=== PATIENT | male | born 1960 | race Caucasian/White ===

== ENCOUNTER 2020-08-15 08:30 | Outpatient (REF) | payer OTHER, SELFPAY ==
[2020-08-15 11:04] LABS: MANUAL DIFF FLAG NO
[2020-08-15 11:20] LABS: Basophils Absolute Auto 0.1 X10*3/uL (0.0-0.2); Basophils Percent Auto 0.6 % (0-2); Eosinophils Absolute Auto 0.1 X10*3/uL (0.0-0.4); Eosinophils Percent Auto 0.8 % (0-4); Hemoglobin 16.8 g/dl (14.0-18.0); Imm Gran Abs Auto 0.04 X10*3/uL (0.00-0.03); Imm Gran Pct Auto 0.4 % (0.0-0.4); Lymphocytes Absolute Auto 2.3 X10*3/uL (1.2-4.9); Lymphocytes Percent Auto 25.3 % (20-40); Mean Corpuscular HGB Conc 32.9 g/dl (31.0-36.0); Mean Corpuscular Hemoglobin 31.6 pg (27.0-33.0); Mean Corpuscular Volume 95.9 fL (80-98); Mean Platelet Volume 10.5 fL (9.4-12.4); Monocytes Absolute Auto 0.7 X10*3/uL (0.1-1.2); Monocytes Percent Auto 7.9 % (2-11); Neutrophils Absolute Auto 5.9 X10*3/uL (2.0-8.3); Platelet Count 272 X10*3/uL (160-400); Red Blood Count 5.32 X10*6/uL (4.60-5.80); Red Cell Distribution Width 12.4 % (11.0-16.0); White Blood Count 9.1 X10*3/uL (4.8-10.8)
[2020-08-15 11:52] LABS: Alanine Aminotransferase 14 U/L (0-40); Albumin Level 4.5 g/dL (3.5-5.0); Alkaline Phosphatase 81 U/L (39-117); Anion Gap 12 (12-20); Aspartate Amino Transferase 17 U/L (5-37); Blood Urea Nitrogen 18 mg/dL (9-16); Calcium 9.4 mg/dL (8.4-10.2); Carbon Dioxide 27 mmol/L (22-29); Chloride 102 mmol/L (96-108); Cholesterol 213 mg/dL; Estimated Glomerular Filt Rate > 60; Glucose Fasting 100 mg/dL (60-99); HDL Cholesterol 38 mg/dL; LDL Cholesterol Calculated 144 mg/dl; Potassium 4.5 mmol/L (3.3-5.1); Sodium 136 mmol/L (135-145); Triglycerides 157 mg/dL
[2020-08-15 12:11] LABS: Microalbum/Creatinine Ratio Ur 5.6 ug/mg cr
[2020-08-15 12:18] LABS: Prostate Specific Antigen Scr 3.18 ng/mL (<0.05-4.0); Thyroid Stimulating Hormone 1.17 uIU/mL (0.32-4.0)
== END 2020-08-15 08:31 | disposition home or self-care (01) ==
LOC: HO.HMGCLDS 08:30
PROVIDERS: PCP Physician Assistant; Visit Provider Physician Assistant
DX: I10 Essential (primary) hypertension (principal); E78.9 Disorder of lipoprotein metabolism, unspecified; Z12.5 Encounter for screening for malignant neoplasm of prostate
CPT/HCPCS: 36415; 80053; 80061; 82043; 84153; 84443; 85025

== ENCOUNTER 2020-08-30 07:46 | Outpatient (REF) | payer OTHER, SELFPAY ==
--- NOTE | ~2020-08-30 | US_ITS ---
EXAMINATION: US ABDOMEN LIMITED CLINICAL INFORMATION: Benign neoplasm of extrahepatic bile ducts. COMPARISON: Ultrasound abdomen complete 10/21/2017 and 12/05/2016. CT abdomen and pelvis 10/05/2015. TECHNIQUE: Real-time imaging of the right upper quadrant abdominal viscera. FINDINGS: PANCREAS: The pancreas is homogeneous in echotexture without enlargement. The tail is obscured by overlying gas. LIVER: The liver is normal in size. The liver contour is normal. Parenchymal echogenicity is normal. No focal hepatic lesion. There is no intrahepatic biliary duct dilatation seen. GALLBLADDER: The gallbladder wall thickness is 0.2 cm. The gallbladder is physiologically distended without evidence of stones, sludge, polyps, wall thickening or pericholecystic fluid. COMMON BILE DUCT: Normal in caliber measuring 0.5 cm in diameter. RIGHT KIDNEY: Normal. No hydronephrosis. No renal calculi or focal parenchymal lesions. The kidney measures 10.8 cm in maximum dimension. FREE FLUID: None. US/US abdomen limited IMPRESSION: Unremarkable limited abdomen ultrasound.
== END 2020-08-30 07:47 | disposition home or self-care (01) ==
LOC: HO.US 07:46
PROVIDERS: PCP Physician Assistant; Visit Provider Physician Assistant
DX: D13.5 Benign neoplasm of extrahepatic bile ducts (principal)
CPT/HCPCS: 76705

== ENCOUNTER 2021-01-25 16:40 | Outpatient (REF) | payer OTHER, SELFPAY ==
--- NOTE | ~2021-01-25 | XR_ITS ---
EXAMINATION: XR KNEE, LEFT CLINICAL INFORMATION: Pain in the left knee COMPARISON: None TECHNIQUE: Four views of the left knee. FINDINGS: No fracture or subluxation. Compartmental joint spaces are maintained. No joint effusion. Enthesophyte formation of the patella and tibial tuberosity. XR/XR knee LT 4V IMPRESSION: No acute abnormality. No significant arthritic changes.
--- NOTE | ~2021-01-25 | XR_ITS ---
EXAMINATION: XR CALCANEUS, RIGHT CLINICAL INFORMATION: Right heel pain COMPARISON: None TECHNIQUE: Lateral and axial views of the right calcaneus were obtained. FINDINGS: No fracture or cortical disruption. Appropriate alignment with appropriate appearance of the articulations. Mild hypertrophic spurring of the plantar aponeurosis and Achilles insertion to the calcaneus. No ankle joint effusion. XR/XR calcaneus RT min 2V IMPRESSION: No acute abnormality. Small heel spurs.
== END 2021-01-25 16:41 | disposition home or self-care (01) ==
LOC: HO.HMGCX 16:40
PROVIDERS: PCP Physician Assistant; Visit Provider Hospitalist
DX: M25.561 Pain in right knee (principal)
CPT/HCPCS: 73564; 73650

== ENCOUNTER 2021-02-19 07:42 | Outpatient (REF) | payer OTHER, SELFPAY ==
[2021-02-19 11:46] LABS: Hematocrit 47.7 % (42-52); Mean Corpuscular HGB Conc 33.5 g/dl (31.0-36.0); Mean Corpuscular Hemoglobin 32.4 pg (27.0-33.0); Mean Corpuscular Volume 96.6 fL (80-98); Mean Platelet Volume 10.2 fL (9.4-12.4); Platelet Count 246 X10*3/uL (160-400); Red Blood Count 4.94 X10*6/uL (4.60-5.80); Red Cell Distribution Width 12.4 % (11.0-16.0); White Blood Count 8.6 X10*3/uL (4.8-10.8)
[2021-02-19 12:13] LABS: Alanine Aminotransferase 17 U/L (0-40); Albumin Level 4.2 g/dL (3.5-5.0); Alkaline Phosphatase 71 U/L (39-117); Anion Gap 12 (12-20); Aspartate Amino Transferase 16 U/L (5-37); Bilirubin Total 0.9 mg/dL (0.0-1.0); Blood Urea Nitrogen 17 mg/dL (9-16); Calcium 9.1 mg/dL (8.4-10.2); Carbon Dioxide 25 mmol/L (22-29); Chloride 106 mmol/L (96-108); Cholesterol 198 mg/dL; Estimated Glomerular Filt Rate > 60; Glucose Fasting 102 mg/dL (60-99); HDL Cholesterol 40 mg/dL; LDL Cholesterol Calculated 133 mg/dl; Potassium 3.8 mmol/L (3.3-5.1); Sodium 139 mmol/L (135-145); Total Protein 6.5 g/dL (6.5-8.0); Triglycerides 125 mg/dL
[2021-02-19 12:18] LABS: TSH reflex Free T4 1.54 uIU/mL (0.32-4.0)
== END 2021-02-19 07:43 | disposition home or self-care (01) ==
LOC: HO.HMGCLDS 07:42
PROVIDERS: PCP Physician Assistant; Visit Provider Physician Assistant
DX: I10 Essential (primary) hypertension (principal)
CPT/HCPCS: 36415; 80053; 80061; 84443; 85027

== ENCOUNTER 2021-08-14 06:55 | Outpatient (REF) | payer OTHER, SELFPAY ==
[2021-08-14 11:14] LABS: Hematocrit 50.9 % (42.0-52.0); Hemoglobin 16.6 g/dl (14.0-18.0); Mean Corpuscular HGB Conc 32.6 g/dl (31.0-36.0); Mean Corpuscular Hemoglobin 31.3 pg (27.0-33.0); Mean Corpuscular Volume 95.9 fL (80.0-98.0); Mean Platelet Volume 10.8 fL (9.4-12.4); Platelet Count 247 X10*3/uL (160-400); Red Blood Count 5.31 X10*6/uL (4.60-5.80); Red Cell Distribution Width 12.6 % (11.0-16.0); White Blood Count 9.2 X10*3/uL (4.8-10.8)
[2021-08-14 12:14] LABS: Alanine Aminotransferase 14 U/L (0-40); Albumin Level 4.2 g/dL (3.5-5.0); Alkaline Phosphatase 76 U/L (39-117); Anion Gap 11 (12-20); Aspartate Amino Transferase 17 U/L (5-37); Bilirubin Total 0.9 mg/dL (0.0-1.0); Blood Urea Nitrogen 14 mg/dL (9-16); Calcium 9.6 mg/dL (8.4-10.2); Carbon Dioxide 28 mmol/L (22-29); Chloride 107 mmol/L (96-108); Cholesterol 210 mg/dL; Estimated Glomerular Filt Rate > 60; Glucose Fasting 111 mg/dL (60-99); HDL Cholesterol 37 mg/dL; LDL Cholesterol Calculated 147 mg/dl; Potassium 4.5 mmol/L (3.3-5.1); Sodium 141 mmol/L (135-145); Total Protein 6.7 g/dL (6.5-8.0); Triglycerides 132 mg/dL
[2021-08-14 12:47] LABS: Prostate Specific Antigen Scr 2.99 ng/mL (<0.05-4.0)
== END 2021-08-14 06:56 | disposition home or self-care (01) ==
LOC: HO.HMGCLDS 06:55
PROVIDERS: Visit Provider Physician Assistant
DX: I10 Essential (primary) hypertension (principal); Z12.5 Encounter for screening for malignant neoplasm of prostate
CPT/HCPCS: 36415; 80053; 80061; 84153; 85027

== ENCOUNTER 2022-02-14 07:48 | Outpatient (REF) | payer OTHER, SELFPAY ==
[2022-02-14 11:33] LABS: Hematocrit 48.7 % (42.0-52.0); Hemoglobin 16.2 g/dl (14.0-18.0); Mean Corpuscular HGB Conc 33.3 g/dl (31.0-36.0); Mean Corpuscular Hemoglobin 31.7 pg (27.0-33.0); Mean Corpuscular Volume 95.3 fL (80.0-98.0); Mean Platelet Volume 10.6 fL (9.4-12.4); Platelet Count 261 X10*3/uL (160-400); Red Blood Count 5.11 X10*6/uL (4.60-5.80); Red Cell Distribution Width 12.4 % (11.0-16.0); White Blood Count 9.2 X10*3/uL (4.8-10.8)
[2022-02-14 11:43] LABS: Estimated Average Glucose 97 mg/dL
[2022-02-14 12:00] LABS: Alanine Aminotransferase 19 U/L (0-40); Albumin Level 4.2 g/dL (3.5-5.0); Alkaline Phosphatase 72 U/L (39-117); Anion Gap 14 (12-20); Aspartate Amino Transferase 18 U/L (5-37); Bilirubin Total 0.8 mg/dL (0.0-1.0); Blood Urea Nitrogen 17 mg/dL (9-16); Calcium 9.2 mg/dL (8.4-10.2); Carbon Dioxide 25 mmol/L (22-29); Chloride 106 mmol/L (96-108); Cholesterol 189 mg/dL; Estimated Glomerular Filt Rate > 60; Glucose Fasting 116 mg/dL (60-99); HDL Cholesterol 42 mg/dL; LDL Cholesterol Calculated 127 mg/dl; Potassium 4.9 mmol/L (3.3-5.1); Sodium 140 mmol/L (135-145); Total Protein 6.6 g/dL (6.5-8.0); Triglycerides 102 mg/dL
[2022-02-14 12:06] LABS: TSH reflex Free T4 1.39 uIU/mL (0.32-4.0)
== END 2022-02-14 07:49 | disposition home or self-care (01) ==
LOC: HO.HMGCLDS 07:48
PROVIDERS: PCP Physician Assistant; Visit Provider Physician Assistant
DX: I10 Essential (primary) hypertension (principal)
CPT/HCPCS: 36415; 80053; 80061; 83036; 84443; 85027

== ENCOUNTER 2022-09-24 09:12 | Outpatient (REF) | payer OTHER, SELFPAY ==
[2022-09-24 11:51] LABS: Hematocrit 50.7 % (42.0-52.0); Hemoglobin 16.7 g/dl (14.0-18.0); Mean Corpuscular HGB Conc 32.9 g/dl (31.0-36.0); Mean Corpuscular Hemoglobin 31.3 pg (27.0-33.0); Mean Corpuscular Volume 95.1 fL (80.0-98.0); Mean Platelet Volume 10.4 fL (9.4-12.4); Platelet Count 276 X10*3/uL (160-400); Red Blood Count 5.33 X10*6/uL (4.60-5.80); Red Cell Distribution Width 12.6 % (11.0-16.0); White Blood Count 9.2 X10*3/uL (4.8-10.8)
[2022-09-24 12:14] LABS: Microalbum/Creatinine Ratio Ur 5.5 ug/mg cr
[2022-09-24 12:26] LABS: Alanine Aminotransferase 18 U/L (0-40); Albumin Level 4.2 g/dL (3.5-5.0); Alkaline Phosphatase 74 U/L (39-117); Anion Gap 10 (12-20); Aspartate Amino Transferase 19 U/L (5-37); Bilirubin Total 1.1 mg/dL (0.0-1.0); Blood Urea Nitrogen 14 mg/dL (9-16); Calcium 9.4 mg/dL (8.4-10.2); Carbon Dioxide 27 mmol/L (22-29); Chloride 106 mmol/L (96-108); Cholesterol 215 mg/dL; Estimated Glomerular Filt Rate > 60; Glucose Fasting 106 mg/dL (60-99); HDL Cholesterol 38 mg/dL; LDL Cholesterol Calculated 156 mg/dl; Potassium 4.3 mmol/L (3.3-5.1); Sodium 139 mmol/L (135-145); Total Protein 6.5 g/dL (6.5-8.0); Triglycerides 109 mg/dL
[2022-09-24 12:33] LABS: Prostate Specific Antigen Scr 2.74 ng/mL (<0.05-4.0)
== END 2022-09-24 09:13 | disposition home or self-care (01) ==
LOC: HO.HMGCLDS 09:12
PROVIDERS: PCP Physician Assistant; Visit Provider Physician Assistant
DX: I10 Essential (primary) hypertension (principal); Z12.5 Encounter for screening for malignant neoplasm of prostate
CPT/HCPCS: 36415; 80053; 80061; 82043; 84153; 84443; 85027

== ENCOUNTER 2023-03-18 10:00 | Outpatient (REF) | payer OTHER, SELFPAY ==
[2023-03-18 13:26] LABS: Hematocrit 48.8 % (42.0-52.0); Hemoglobin 16.2 g/dl (14.0-18.0); Mean Corpuscular HGB Conc 33.2 g/dl (31.0-36.0); Mean Corpuscular Hemoglobin 31.3 pg (27.0-33.0); Mean Corpuscular Volume 94.2 fL (80.0-98.0); Mean Platelet Volume 10.3 fL (9.4-12.4); Platelet Count 282 X10*3/uL (160-400); Red Blood Count 5.18 X10*6/uL (4.60-5.80); Red Cell Distribution Width 12.6 % (11.0-16.0); White Blood Count 9.2 X10*3/uL (4.8-10.8)
[2023-03-18 13:32] LABS: Estimated Average Glucose 97 mg/dL
[2023-03-18 14:28] LABS: Alanine Aminotransferase 15 U/L (0-40); Albumin Level 4.2 g/dL (3.5-5.0); Alkaline Phosphatase 72 U/L (39-117); Anion Gap 12 (12-20); Aspartate Amino Transferase 20 U/L (5-37); Blood Urea Nitrogen 16 mg/dL (9-16); Calcium 9.4 mg/dL (8.4-10.2); Carbon Dioxide 24 mmol/L (22-29); Chloride 105 mmol/L (96-108); Cholesterol 200 mg/dL (<200); Estimated Glomerular Filt Rate > 60; Glucose Fasting 95 mg/dL (60-99); HDL Cholesterol 40 mg/dL (>40); LDL Cholesterol Calculated 143 mg/dL (<100); Potassium 4.1 mmol/L (3.3-5.1); Sodium 137 mmol/L (135-145); Total Protein 6.9 g/dL (6.5-8.0); Triglycerides 86 mg/dL (<150)
== END 2023-03-18 10:01 | disposition home or self-care (01) ==
LOC: HO.HMGCLDS 10:00
PROVIDERS: PCP Physician Assistant; Visit Provider Physician Assistant
DX: I10 Essential (primary) hypertension (principal); R73.09 Other abnormal glucose; E78.9 Disorder of lipoprotein metabolism, unspecified
CPT/HCPCS: 36415; 80053; 80061; 83036; 85027

== ENCOUNTER 2023-04-01 09:39 | Outpatient (AMB) | payer OTHER, SELFPAY ==
[2023-04-01 09:40] VITALS: BP 160/90; PULSE 60; RESP 16; O2SAT 97
--- NOTE | 2023-04-01 09:40 | MHC.PC.OV ---
Vital Signs 04/01/23 09:40 04/01/23 10:08 Height 5 ft 10 in Weight 209 lb BMI 30.0 BP 160/90 H 160/85 H Blood Pressure Location Lt brachial Position Sitting Respiration 16 Pulse 60 Pulse Source Pulse Oximeter Pulse Oximetry (%) 97 Oxygen Delivery Method Room Air Intake Visit Reasons: f/u HTN Intake Note: Patient is here to follow up on HTN. Immunologist Required: No Accompanied by: Self / Same As Patient Allergies lisinopril Allergy (Unknown, Verified 04/01/23 09:54) Unknown No Known Allergies [No Known Allergies*] Allergy (Verified 04/01/23 09:54) Medication List - Last Reconciled 04/01/23 by Darius Blanco PA-C amlodipine 2.5 mg PO DAILY atenolol 25 mg PO DAILY ivermectin 1% 1 appl topical DAILY PRN 14 days metronidazole 0.75% 1 appl topical DAILY PRN 15 days triamcinolone acetonide 0.1% 1 appl topical DAILY 15 days Tobacco use date assessed: 09/29/22 Dental Screening Dental Screen Date: 04/01/23 Did you have a dental visit in the last 12 months?: Yes Did you have a dental problem in the last 6 months where you did not have access to dental care?: No Was dental information given to patient?: Patient has dentist HPI f/u HTN HPI Details Patient is a 62 -year-old male here today for a follow-up visit. ? Patient has a past medical history hypertension, impaired glucose metabolism, borderline high cholesterol. concerns--> has noted a skin lesion over his left lower extremity, has been using triple antibiotic ointment and cortisone 10 without much relief. He has been using moisturizer. He attributes this skin lesion to contact dermatitis which happen quite often. ? .. ? Hypertension: blood pressure today in office elevated, has not been regularly monitoring his blood pressure at home. Continues on amlodipine 2.5 mg and atenolol 25 mg daily.?He denies any headaches, chest discomfort, palpitations. PLAN: Will increase his amlodipine to 5 mg daily for better blood pressure control ? . ? .. ? Borderline high cholesterol:? Patient's cholesterol panel has improved with lifestyle modifications.? Total cholesterol 200 Impaired glucose metabolism:? Patient's most recent fasting blood sugar improved though still slightly elevated. He attributes his elevations in his blood sugar due to his diet.? He will try to work on reducing his sugar at night.? 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 Lane Elias, Carmen Clark, Ellito Gilmore and colleagues, with an educational jigna from [employer]. Review of Systems Const Denies headache(s) Eyes Denies loss of vision ENT Denies vertigo, Denies dizziness, Denies headache(s) and Denies sore throat Card Denies chest pain, Denies leg edema and Denies lightheadedness Resp Denies cough, Denies hemoptysis and Denies wheezing GI Denies abdominal pain, Denies melena, Denies constipation, Denies diarrhea and Denies vomiting Denies dysuria, Denies urinary frequency and Denies urinary urgency Musc Denies arthralgias, Denies joint swelling, Denies numbness and Denies tingling Neuro Denies Abnormal speech present, Denies behavioral changes, Denies vertigo, Denies dizziness, Denies headache(s), Denies loss of vision, Denies memory loss, Denies numbness and Denies tingling Psych Denies anxiety, Denies behavioral changes, Denies depression, Denies memory loss and Denies panic attacks Iglesia/Lymph Denies easy bleeding and Denies easy bruising Aller/Immun Denies wheezing Physical exam (Primary Care) Vital Signs: Last Vital Signs Pulse 60 04/01/23 09:40 Resp 16 04/01/23 09:40 BP 160/85 H 04/01/23 10:08 Pulse Ox 97 04/01/23 09:40 Oxygen Delivery Method Room Air 04/01/23 09:40 BMI result Body Mass Index 30.0 Tobacco/Smoking Status: Tobacco use Status Tobacco use date assessed 09/29/22 04/01/23 09:40 Patient Tobacco Use Status Never used Tobacco 04/01/23 09:40 e-Cigarette/Vaping Use Never Used 04/01/23 09:40 Thrive Assessment: Date of Thrive Assessment Date Thrive assessed 09/29/22 04/01/23 09:40 Const General: healthy appearing, no acute distress, alert and awake Nutritional Appearance: well nourished Orientation/consciousness: oriented to person, oriented to place and oriented to time HENMT Ears: TM's normal bilaterally General nose exam: Normal nasal mucous membranes and turbinates present Eyes Conjunctivae: conjunctivae normal Sclerae: sclerae normal Pupils: Equal, round and reactive pupils present Neck Neck: Yes no lymphadenopathy and Yes no JVD Thyroid: Thyroid normal Carotids: no bruits Resp Effort & Inspection: normal respiratory effort and not tachypneic Auscultation: no crackles, no rales, no rhonchi and no wheezes Cardio Rate: regular rate Rhythm: regular rhythm Heart sounds: no murmurs and normal S1 and S2 GI Palpation (GI): Soft to palpation, nontender, no hepatomegaly and no splenomegaly Auscultation: normal bowel sounds Skin General skin exam: no rashes or lesions noted and dry skin Neuro General: oriented to person, oriented to place and oriented to time Cranial nerves: Yes Equal, round and reactive pupils present Speech: No Abnormal speech present Gait exam (Neuro): Normal gait present Motor exam (neuro): no tremor noted Extrem Right upper extremity: full ROM Left upper extremity: full ROM Right lower extremity: full ROM; no edema Left lower extremity: full ROM; no edema Psych Mental Status: mental status grossly normal Speech and movement: Normal speech and movement present Affect: normal affect Attitude: cooperative Thought process: Normal thought process present Assessment and Plan Assessment & Plan (1) Borderline high cholesterol: Code(s): E78.9 - Disorder of lipoprotein metabolism, unspecified Plan: Patient's most recent fasting lipid panel showing borderline high total cholesterol. He will continue to work on lifestyle modifications to reduce his cholesterol. Goal LDL to be below 160 (2) Impaired glucose metabolism: Code(s): R73.09 - Other abnormal glucose Plan: Patient's most recent fasting blood sugar improved. Will continue to work on lifestyle modifications to reduce his high carbohydrate foods. (3) HTN (hypertension): Code(s): I10 - Essential (primary) hypertension Qualifiers: Hypertension type: essential hypertension Qualified Code(s): I10 - Essential (primary) hypertension Plan: Blood pressure remains slightly elevated today in office, does seem to have an element of white coat hypertension. He continues on atenolol and amlodipine with good effect. He reports that home blood pressures have been pretty stable below 140/90. (4) Contact dermatitis: Code(s): L25.9 - Unspecified contact dermatitis, unspecified cause Qualifiers: Contact dermatitis type: unspecified Contact dermatitis trigger: unspecified trigger Qualified Code(s): L25.9 - Unspecified contact dermatitis, unspecified cause Plan: Often gets episodes of contact dermatitis to which he uses the cortisone cream for which good relief. Otherwise globally over his skin he does often feel try and have small itchy areas to which he uses moisturizer for. Has upcoming appointment with Dermatology. Orders: Orders Microalbumin, Random (w Creat) Today I10 - Essential (primary) hypertension Hemoglobin A1c Today R73.09 - Other abnormal glucose Comprehensive [place]. Panel Fast Today I10 - Essential (primary) hypertension Lipid Panel Today R03.0 - Elevated blood-pressure reading, without diagnosis of hypertension Prostate Specific Antigen Scr Today I10 - Essential (primary) hypertension, Z12.5 - Encounter for screening for malignant neoplasm of prostate Varicella IgG Antibody Today Z78.9 - Other specified health status Medications: New amlodipine 5 mg PO DAILY 90 days 90 tabs 1RF I10 - Essential (primary) hypertension Discontinued amlodipine Discontinued Reason: Doctor's Order 2.5 mg PO DAILY 90 tabs 1RF I10 - Essential (primary) hypertension Coding Level of Care Code Est Pt Level 4 (50270) Diagnoses Borderline high cholesterol E78.9 Impaired glucose metabolism R73.09 Essential hypertension I10 Hypertension type: essential hypertension Contact dermatitis, unspecified contact dermatitis type, unspecified trigger L25.9 Contact dermatitis type: unspecified Contact dermatitis trigger: unspecified trigger
[2023-04-01 10:08] VITALS: BP 160/85
== END 2023-04-01 10:11 | disposition home or self-care (01) ==
PROVIDERS: PCP Physician Assistant; Visit Provider Physician Assistant
DX: E78.9 Disorder of lipoprotein metabolism, unspecified (principal); R73.09 Other abnormal glucose; I10 Essential (primary) hypertension; L25.9 Unspecified contact dermatitis, unspecified cause
CPT/HCPCS: 99214

== ENCOUNTER 2023-09-23 08:29 | Outpatient (REF) | payer OTHER, SELFPAY ==
[2023-09-23 10:55] LABS: Alanine Aminotransferase 22 U/L (0-40); Albumin Level 4.2 g/dL (3.5-5.0); Alkaline Phosphatase 75 U/L (39-117); Anion Gap 11 (12-20); Aspartate Amino Transferase 21 U/L (5-37); Bilirubin Total 0.7 mg/dL (0.0-1.0); Blood Urea Nitrogen 16 mg/dL (9-16); Calcium 9.3 mg/dL (8.4-10.2); Carbon Dioxide 26 mmol/L (22-29); Chloride 106 mmol/L (96-108); Cholesterol 219 mg/dL (<200); Estimated Glomerular Filt Rate > 60; Glucose Fasting 106 mg/dL (60-99); HDL Cholesterol 41 mg/dL (>40); LDL Cholesterol Calculated 152 mg/dL (<100); Potassium 4.1 mmol/L (3.3-5.1); Sodium 139 mmol/L (135-145); Total Protein 6.9 g/dL (6.5-8.0); Triglycerides 134 mg/dL (<150)
[2023-09-23 11:21] LABS: Prostate Specific Antigen Scr 3.14 ng/mL (<0.05-4.0)
[2023-09-23 11:43] LABS: Estimated Average Glucose 100 mg/dL; Hemoglobin A1c % 5.1 % (<6.0)
[2023-09-23 11:59] LABS: Creatinine Urine 117.55 mg/dL; Microalbum/Creatinine Ratio Ur 5.1 ug/mg cr (<30)
== END 2023-09-23 08:30 | disposition home or self-care (01) ==
LOC: HO.HMGCLDS 08:29
PROVIDERS: PCP Physician Assistant; Visit Provider Physician Assistant
DX: Z12.5 Encounter for screening for malignant neoplasm of prostate (principal); R03.0 Elevated blood-pressure reading, without diagnosis of hypertension; R73.09 Other abnormal glucose; I10 Essential (primary) hypertension; Z78.9 Other specified health status
CPT/HCPCS: 36415; 80053; 80061; 82043; 82570; 83036; 84153; 86787

== ENCOUNTER 2023-10-01 10:02 | Outpatient (AMB) | payer OTHER, SELFPAY ==
--- NOTE | 2023-10-01 10:16 | MHC.PC.OV ---
Vital Signs 10/01/23 10:17 Height 5 ft 10 in Weight 208 lb 8 oz BMI 29.9 BP 150/84 H Blood Pressure Location Lt brachial Position Sitting Pulse 62 Pulse Source Pulse Oximeter Pulse Oximetry (%) 98 Oxygen Delivery Method Room Air Intake Visit Reasons: pe Intake Note: Patient is here today for a physical. 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 Accompanied by: Self / Same As Patient Allergies lisinopril Allergy (Unknown, Verified 10/01/23 10:33) Unknown No Known Allergies [No Known Allergies*] Allergy (Verified 10/01/23 10:33) Medication List - Last Reconciled 10/01/23 by Darius Blanco PA-C amlodipine 5 mg PO DAILY 90 days atenolol 25 mg PO DAILY ivermectin 1% 1 appl topical DAILY PRN 14 days metronidazole 0.75% 1 appl topical DAILY PRN 15 days triamcinolone acetonide 0.1% 1 appl topical DAILY 15 days Tobacco use date assessed: 10/01/23 Dental Screening Dental Screen Date: 10/01/23 Did you have a dental visit in the last 12 months?: No Did you have a dental problem in the last 6 months where you did not have access to dental care?: No Was dental information given to patient?: Patient has dentist HPI pe HPI Details Patient is a 63 -year-old male here today for a routine annual physical ? Patient has a past medical history hypertension, impaired glucose metabolism, borderline high cholesterol. concerns--> no acute concerns today ? .. ? Hypertension: blood pressure today in office elevated, has not been regularly monitoring his blood pressure at home. 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 We have increased his amlodipine dose to 5 mg. Urine testing for protein was normal PLAN: Will monitor blood pressure regularly to evaluate for hypertensive 7 at home. ? . ? .. ? Borderline high cholesterol:? Patient's most recent cholesterol panel showing slight elevation his total cholesterol and triglycerides. He reports some dietary indiscretion. He will continue working on lifestyle and dietary modifications Impaired glucose metabolism:? Most recent blood sugar slightly elevated, does admit to eating sweets often.. He attributes his elevations in his blood sugar due to his diet.? He will try to work on reducing his sugar at night.? Most recent A1c of 5.1 Colon cancer screening: Cologaurd done in 2022- neg Vaccine: UTD with COVID vaccine, FLu , Tdap, Considering shingrex PFSH Medical History Adenomyoma of gallbladder Acne rosacea Family History Brother Prostate CA Father Prostate CA Mother Brain tumor Social History Housing: House Alcohol intake: never Patient Tobacco Use Status: Never used Tobacco e-Cigarette/Vaping Use: Never Used Second Hand Smoke Exposure: No service: No Current occupational status: retired Current occupation: [email or web address] Cognitive needs: No Hearing needs: No Vision needs: No Questionnaire PHQ-9 Over the last 2 weeks, how often have you been bothered by any of the following problems? 1. Little interest or pleasure in doing things: not at all 2. Feeling down, depressed, or hopeless: not at all 3. Trouble falling or staying asleep, or sleeping too much: not at all 4. Feeling tired or having little energy: not at all 5. Poor appetite or overeating: not at all 6. Feeling bad about yourself - or that you are a failure or have let yourself or your family down: not at all 7. Trouble concentrating on things, such as reading the newspaper or watching television: not at all 8. Moving or speaking so slowly that other people could have noticed. Or the opposite - being so fidgety or restless that you have been moving around a lot more than usual: not at all 9. Thoughts that you would be better off or of hurting yourself in some way: not at all Total score: 0 Depression Screening Interpretation: Negative Depression Screening Done: Yes 15874 - PHQ-9 Billing: Yes Source: Developed by Drs. Lane Elias, Carmen Clark, Elliot Gilmore and colleagues, with an educational jigna from [employer]. Thrive Questionnaire Date Thrive assessed: 10/01/23 I am a: Patient What is your living situation today?: I have a steady place to live Within the past 12 months, did the food you bought not last and you didn't have the money to get more?: Never true Within the past 12 months, did you worry whether your food would run out before you got money to buy more?: Never true Do you have trouble paying for medicines?: No Do you have trouble getting transportation to medical appointments?: No Do you have trouble paying your heating and electricity bill?: No Do you have trouble taking care of your child, family member or friend?: No Do you have trouble with day-to-day activities such as bathing, preparing meals, shopping, managing finances, etc.?: No Are you currently unemployed and looking for a job?: No Are you interested in more education?: No Please select the resources that you would like help with: None Currently or been in a relationship where the following occur: no concerns reported THRIVE Score: 0 AUDIT C Alcohol Use Questionnaire (AUDIT-C) 1. How often do you have a drink containing alcohol?: Never 3. How often do you have six or more drinks on one occasion?: Never Total Score: 0 SUSHIL-7 AMB Questionnaire SUSHIL-7 Date SUSHIL - 7 assessed: 10/01/23 Feeling nervous, anxious, or on edge: 0 = Not at all Not being able to stop or control worryin = Not at all Worrying too much about different things: 0 = Not at all Trouble relaxin = Not at all Being so restless that it is hard to sit still: 0 = Not at all Becoming easily annoyed or irritable: 0 = Not at all Feeling afraid as if something awful might happen: 0 = Not at all Total SUSHIL-7 score (0-4 normal; 5-9 mild; 10-14 moderate; 15-21 severe): 0 Source: Developed by Drs. Lane Elias, Carmen Clark, Elliot Gilmore and colleagues, with an educational jigna from [employer]. SUSHIL-7 Assessment Billing SUSHIL-7 Assessment Tool: SUSHIL-7 Assessment 50364 Review of Systems Const Denies body aches, Denies chills, Denies excessive sweating, Denies fatigue, Denies fever(s) and Denies headache(s) Eyes Denies blurry vision ENT Denies dysphagia, Denies vertigo, Denies dizziness, Denies headache(s), Denies hearing loss and Denies tinnitus Card Denies chest pain, Denies chest pain with activity, Denies syncope, Denies irregular heart rhythm and Denies dyspnea Resp Denies chest congestion, Denies cough, Denies hemoptysis, Denies dyspnea and Denies wheezing GI Denies abdominal pain, Denies melena, Denies hematochezia, Denies coffee ground emesis, Denies dysphagia, Denies diarrhea, Denies nausea and Denies vomiting Denies difficulty urinating, Denies dysuria, Denies urinary frequency, Denies urinary hesitancy and Denies urinary urgency Musc Denies arthralgias, Denies limited range of motion, Denies muscle cramps and Denies muscle weakness Skin/Breast Denies rash and Denies skin ulcer Neuro Denies Abnormal speech present, Denies confusion, Denies vertigo, Denies dizziness, Denies syncope, Denies headache(s), Denies memory loss and Denies seizure-like activity Psych Denies anxiety, Denies confusion, Denies depression, Denies memory loss, Denies panic attacks and Denies paranoia Endo Denies excessive sweating, Denies fatigue, Denies flushing, Denies polydipsia and Denies polyuria Aller/Immun Denies wheezing Physical exam (Primary Care) Vital Signs: Last Vital Signs Pulse 62 10/01/23 10:17 BP 150/84 H 10/01/23 10:17 Pulse Ox 98 10/01/23 10:17 Oxygen Delivery Method Room Air 10/01/23 10:17 BMI result Body Mass Index 29.9 Tobacco/Smoking Status: Tobacco use Status Tobacco use date assessed 10/01/23 10/01/23 10:19 Patient Tobacco Use Status Never used Tobacco 10/01/23 10:19 e-Cigarette/Vaping Use Never Used 10/01/23 10:19 PHQ-9: PHQ-9 Score PHQ-9: Total score 0 10/01/23 10:35 Depression Screening Interpretation: Negative Thrive Assessment: Date of Thrive Assessment Date Thrive assessed 10/01/23 10/01/23 10:19 Currently or been in a relationship where the following occur: no concerns reported Const General: cooperative, comfortable, no acute distress, alert and awake; No confusion Orientation/consciousness: oriented to person, oriented to place, patient oriented x3 and No confusion HENMT Head: Yes normocephalic Ears: external ears normal and TM's normal bilaterally Face and sinus: No sinus tenderness Mouth: Normal oral and palatal mucosa present and tongue normal Teeth and gingiva: dentition normal and gingiva normal Throat: Yes posterior oropharynx normal, Yes tonsils normal and Yes uvula midline Eyes Conjunctivae: conjunctivae normal Sclerae: sclerae normal Pupils: Equal, round and reactive pupils present EOM: EOMs intact bilaterally Direct Ophthalmoscopy: No no photophobia Neck Neck: Yes no lymphadenopathy, No tender and Yes no JVD Thyroid: Thyroid normal Carotids: no bruits Chest Chest palpation & inspection: no tenderness Resp Effort & Inspection: normal respiratory effort, no audible wheezes, not labored and no stridor Auscultation: no crackles, no rales, no rhonchi and no wheezes Cardio Jugular venous distension: no JVD Rate: regular rate, not bradycardic and not tachycardic Rhythm: regular rhythm Bruits: no carotid bruits Peripheral pulses: Peripheral pulses 2+ throughout GI Inspection: Yes normal to inspection, No abdominal wall ecchymosis and No visible herniation Palpation (GI): Soft to palpation, nontender, no guarding, not rigid and No hepatosplenomegaly present Auscultation: normoactive bowel sounds General: Yes no CVA tenderness Back/Spine/Pelvis Back: no CVA tenderness and No back tenderness Cervical Spine: cervical ROM normal Thoracic/Lumbar Spine: thoracic and lumbar spine normal to inspection, straight leg raise negative bilaterally, No thoraco-lumbar ROM limited and No lumbar spinal tenderness Skin Lesions: no lesions Rashes: no rashes Wounds: no wounds Neuro General: oriented to person, oriented to place, patient oriented x3, CN's II-XI intact bilaterally and No confusion Cranial nerves: Yes Equal, round and reactive pupils present and Yes Normal accommodation reflex present Cognition (Neuro): normal cognition Speech: No Abnormal speech present Gait exam (Neuro): Normal gait present Motor exam (neuro): 5/5 motor strength present throughout Extrem Right upper extremity: full ROM; no cyanosis Left upper extremity: full ROM; no cyanosis Right lower extremity: no edema Left lower extremity: no edema Psych Appearance: grossly normal Mental Status: mental status grossly normal Affect: normal affect Attitude: cooperative Thought process: Normal thought process present Assessment and Plan Assessment & Plan (1) Annual physical exam: Code(s): Z00.00 - Encounter for general adult medical examination without abnormal findings (2) Borderline high cholesterol: Code(s): E78.9 - Disorder of lipoprotein metabolism, unspecified Plan: Patient's most recent fasting lipid panel showing borderline high total cholesterol. He will continue to work on lifestyle modifications to reduce his cholesterol. Goal LDL to be below 160 (3) Impaired glucose metabolism: Code(s): R73.09 - Other abnormal glucose Plan: Patient's most recent fasting blood sugar improved. A1c of 5.1. Will continue to work on lifestyle modifications to reduce his high carbohydrate foods. (4) HTN (hypertension): Code(s): I10 - Essential (primary) hypertension Qualifiers: Hypertension type: essential hypertension Qualified Code(s): I10 - Essential (primary) hypertension Plan: Blood pressure remains slightly elevated today in office, does seem to have an element of white coat hypertension. He continues on atenolol and amlodipine with good effect. Advised to monitor blood pressure more consistently at home to ensure stable blood pressure. Goal blood pressure is to be below 140/90 Orders: Orders Lipid Panel 6 Months E78.9 - Disorder of lipoprotein metabolism, unspecified Hemoglobin A1c 6 Months R73.09 - Other abnormal glucose Comprehensive [place]. Panel Fast 6 Months I10 - Essential (primary) hypertension Coding Level of Care Code Est Pt Prev Care 40-64y(45101) Diagnoses Annual physical exam Z00.00 Borderline high cholesterol E78.9 Impaired glucose metabolism R73.09 Essential hypertension I10 Hypertension type: essential hypertension Additional Codes SUSHIL-7 Assessment Billing - SUSHIL-7 Assessment Tool: SUSHIL-7 Assessment [id number] ([id number])
[2023-10-01 10:17] VITALS: BP 150/84; PULSE 62; O2SAT 98; BMI 29.9
== END 2023-10-01 10:58 | disposition home or self-care (01) ==
PROVIDERS: PCP Physician Assistant; Visit Provider Physician Assistant
DX: Z00.00 Encounter for general adult medical examination without abnormal findings (principal); E78.9 Disorder of lipoprotein metabolism, unspecified; R73.09 Other abnormal glucose; I10 Essential (primary) hypertension
CPT/HCPCS: 99396

== ENCOUNTER 2024-03-30 11:27 | Outpatient (REF) | payer OTHER, SELFPAY ==
[2024-03-30 14:01] LABS: Estimated Average Glucose 100 mg/dL; Hemoglobin A1C 122.7486 umol/L; Hemoglobin A1c % 5.1 % (<6.0); Total Hemoglobin (HGBA1C) 3822.9131 umol/L
[2024-03-30 14:12] LABS: Alanine Aminotransferase 18 U/L (0-40); Albumin Level 4.3 g/dL (3.5-5.0); Alkaline Phosphatase 74 U/L (39-117); Anion Gap 11 (12-20); Aspartate Amino Transferase 19 U/L (5-37); Bilirubin Total 0.8 mg/dL (0.0-1.0); Blood Urea Nitrogen 17 mg/dL (9-16); Calcium 9.8 mg/dL (8.4-10.2); Carbon Dioxide 25 mmol/L (22-29); Chloride 108 mmol/L (96-108); Cholesterol 177 mg/dL (<200); Estimated Glomerular Filt Rate > 60; Glucose Fasting 97 mg/dL (60-99); HDL Cholesterol 36 mg/dL (>40); LDL Cholesterol Calculated 123 mg/dL (<100); Potassium 4.6 mmol/L (3.3-5.1); Sodium 139 mmol/L (135-145); Total Protein 6.9 g/dL (6.5-8.0); Triglycerides 93 mg/dL (<150)
== END 2024-03-30 11:28 | disposition home or self-care (01) ==
LOC: HO.HMGCLDS 11:27
PROVIDERS: PCP Physician Assistant; Visit Provider Physician Assistant
DX: I10 Essential (primary) hypertension (principal); E78.9 Disorder of lipoprotein metabolism, unspecified; R73.09 Other abnormal glucose
CPT/HCPCS: 36415; 80053; 80061; 83036

== ENCOUNTER 2024-04-05 09:59 | Outpatient (AMB) | payer OTHER, SELFPAY ==
[2024-04-05 10:41] VITALS: BP 144/80; PULSE 52; O2SAT 97; BMI 29.9
--- NOTE | 2024-04-05 10:41 | A.OFFPC_ITS ---
Vital Signs 04/05/24 10:41 Height 5 ft 10 in Weight 208 lb 2 oz BMI 29.9 BP 144/80 H Blood Pressure Location Lt brachial Position Sitting Pulse 52 Pulse Source Pulse Oximeter Pulse Oximetry (%) 97 Oxygen Delivery Method Room Air Intake Visit Reasons: f/u HTN Security Orderly Required: No Accompanied by: Self / Same As Patient Allergies lisinopril Allergy (Unknown, Verified 04/05/24 11:09) Unknown No Known Allergies [No Known Allergies*] Allergy (Verified 04/05/24 11:09) Medication List - Last Reconciled 04/05/24 by Darius Blanco PA-C amlodipine 5 mg PO DAILY 90 days atenolol 25 mg PO DAILY cyclobenzaprine 5 mg PO BID 7 days ibuprofen 800 mg PO Q8H PRN 10 days ivermectin 1% 1 appl topical DAILY PRN 14 days metronidazole 0.75% 1 appl topical DAILY PRN 15 days triamcinolone acetonide 0.1% 1 appl topical DAILY 15 days Tobacco use date assessed: 10/01/23 Dental Screening Dental Screen Date: 10/01/23 HPI f/u HTN HPI Details Patient is a 63 -year-old male here today for a follow-up visit ? Patient has a past medical history hypertension, impaired glucose metabolism, borderline high cholesterol. concerns--> no acute concerns today ? .. ? Hypertension: blood pressure today in office elevated, has not been regularly monitoring his blood pressure at home. 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 He continues on amlodipine 5 mg PLAN: Will increase his dose of amlodipine for better blood pressure control. ? . ? .. ? Borderline high cholesterol:? Patient's most recent cholesterol panel showing much improved total cholesterol and LDL. He reports some dietary indiscretion. He will continue working on lifestyle and dietary modifications Impaired glucose metabolism:? Most recent blood sugar slightly elevated, does admit to eating sweets often.. He attributes his elevations in his blood sugar due to his diet.? He will try to work on reducing his sugar at night.? Most recent A1c of 5.1 Laboratory Tests 09/24/22 09/24/22 03/18/23 09:17 09:20 10:05 RBC 5.18 Creatinine Fasting Glucose Hemoglobin A1c % Cholesterol 200 H LDL Cholesterol, C alc 143 H PSA Screen 2.74 Urine Microalbumin 16.0 09/23/23 03/30/24 08:37 11:36 RBC Creatinine 0.92 1.04 Fasting Glucose 106 H Hemoglobin A1c % 5.1 5.1 Cholesterol 219 H 177 LDL Cholesterol, C alc 152 H 123 H PSA Screen 3.14 Urine Microalbumin 6.0 PFSH Medical History Adenomyoma of gallbladder Acne rosacea Family History Brother Prostate CA Father Prostate CA Mother Brain tumor Social History Housing: House Alcohol intake: never Patient Tobacco Use Status: Never used Tobacco e-Cigarette/Vaping Use: Never Used Second Hand Smoke Exposure: No service: No Current occupational status: retired Current occupation: [employer] Cognitive needs: No Hearing needs: No Vision needs: No Questionnaire PHQ-9 Over the last 2 weeks, how often have you been bothered by any of the following problems? 1. Little interest or pleasure in doing things: not at all 2. Feeling down, depressed, or hopeless: not at all 3. Trouble falling or staying asleep, or sleeping too much: not at all 4. Feeling tired or having little energy: not at all 5. Poor appetite or overeating: not at all 6. Feeling bad about yourself - or that you are a failure or have let yourself or your family down: not at all 7. Trouble concentrating on things, such as reading the newspaper or watching television: not at all 8. Moving or speaking so slowly that other people could have noticed. Or the opposite - being so fidgety or restless that you have been moving around a lot more than usual: not at all 9. Thoughts that you would be better off or of hurting yourself in some way: not at all Total score: 0 Depression Screening Interpretation: Negative Depression Screening Done: Yes 46409 - PHQ-9 Billing: Yes Source: Developed by Drs. Lane L. Carmen Elias, Elliot Gilomre and colleagues, with an educational jigna from [employer]. Thrive Questionnaire Date Thrive assessed: 10/01/23 Are you currently unemployed and looking for a job?: No AUDIT C Alcohol Use Questionnaire (AUDIT-C) 3. How often do you have six or more drinks on one occasion?: Never Total Score: 0 SUSHIL-7 AMB Questionnaire SUSHIL-7 Date SUSHIL - 7 assessed: 10/01/23 Source: Developed by Drs. Lane Elias, Carmen Clark, Elliot Gilmore and colleagues, with an educational jigna from [employer]. Review of Systems Const Denies headache(s) Eyes Denies loss of vision ENT Denies vertigo, Denies dizziness, Denies headache(s) and Denies sore throat Card Denies chest pain, Denies leg edema and Denies lightheadedness Resp Denies cough, Denies hemoptysis and Denies wheezing GI Denies abdominal pain, Denies melena, Denies constipation, Denies diarrhea and Denies vomiting Denies dysuria, Denies urinary frequency and Denies urinary urgency Musc Denies arthralgias, Denies joint swelling, Denies numbness and Denies tingling Neuro Denies Abnormal speech present, Denies behavioral changes, Denies vertigo, Denies dizziness, Denies headache(s), Denies loss of vision, Denies memory loss, Denies numbness and Denies tingling Psych Denies anxiety, Denies behavioral changes, Denies depression, Denies memory loss and Denies panic attacks Iglesia/Lymph Denies easy bleeding and Denies easy bruising Aller/Immun Denies wheezing Physical exam (Primary Care) Vital Signs: Last Vital Signs Pulse 52 04/05/24 10:41 BP 144/80 H 04/05/24 10:41 Pulse Ox 97 04/05/24 10:41 Oxygen Delivery Method Room Air 04/05/24 10:41 BMI result Body Mass Index 29.9 Tobacco/Smoking Status: Tobacco use Status Tobacco use date assessed 10/01/23 04/05/24 10:42 Patient Tobacco Use Status Never used Tobacco 04/05/24 10:42 e-Cigarette/Vaping Use Never Used 04/05/24 10:42 PHQ-9: PHQ-9 Score PHQ-9: Total score 0 04/05/24 11:12 Depression Screening Interpretation: Negative Thrive Assessment: Date of Thrive Assessment Date Thrive assessed 10/01/23 04/05/24 10:42 Const General: healthy appearing, no acute distress, alert and awake Nutritional Appearance: well nourished Orientation/consciousness: oriented to person, oriented to place and oriented to time HENMT Ears: TM's normal bilaterally General nose exam: Normal nasal mucous membranes and turbinates present Eyes Conjunctivae: conjunctivae normal Sclerae: sclerae normal Pupils: Equal, round and reactive pupils present Neck Neck: Yes no lymphadenopathy and Yes no JVD Thyroid: Thyroid normal Carotids: no bruits Resp Effort & Inspection: normal respiratory effort and not tachypneic Auscultation: no crackles, no rales, no rhonchi and no wheezes Cardio Rate: regular rate Rhythm: regular rhythm Heart sounds: no murmurs and normal S1 and S2 GI Palpation (GI): Soft to palpation, nontender, no hepatomegaly and no splenomegaly Auscultation: normal bowel sounds Skin General skin exam: no rashes or lesions noted and dry skin Neuro General: oriented to person, oriented to place and oriented to time Cranial nerves: Yes Equal, round and reactive pupils present Speech: No Abnormal speech present Gait exam (Neuro): Normal gait present Motor exam (neuro): no tremor noted Extrem Right upper extremity: full ROM Left upper extremity: full ROM Right lower extremity: full ROM; no edema Left lower extremity: full ROM; no edema Psych Mental Status: mental status grossly normal Speech and movement: Normal speech and movement present Affect: normal affect Attitude: cooperative Thought process: Normal thought process present Coding Level of Care Code Est Pt Level 4 (30851) Diagnoses Essential hypertension I10 Hypertension type: essential hypertension Borderline high blood pressure R03.0 Impaired glucose metabolism R73.09 Assessment & Plan Assessment & Plan (1) HTN (hypertension): Code(s): I10 - Essential (primary) hypertension Category: Medical Qualifiers: Hypertension type: essential hypertension Qualified Code(s): I10 - Essential (primary) hypertension Plan: Patient's blood pressure elevated today in office. Will increase his amlodipine to 10 mg for better blood pressure control. Advised to continue monitoring blood pressure with goal blood pressure to be below 140/90 (2) Borderline high blood pressure: Code(s): R03.0 - Elevated blood-pressure reading, without diagnosis of hypertension Category: Medical Plan: Patient's most recent fasting lipid panel showing better control of his total cholesterol and LDL. He will continue with lifestyle and dietary modifications of his Cholesterol. Goal total cholesterol to be below 200 (3) Impaired glucose metabolism: Code(s): R73.09 - Other abnormal glucose Category: Medical Plan: Most recent fasting blood sugar has improved. A1c not in diabetic range. He will continue lifestyle and dietary modifications to control his fasting blood sugars Orders: Orders Microalbumin, Random (w Creat) 6 Months I10 - Essential (primary) hypertension Comprehensive [place]. Panel Fast 6 Months I10 - Essential (primary) hypertension Hemoglobin A1c 6 Months R73.09 - Other abnormal glucose Lipid Panel 6 Months E78.9 - Disorder of lipoprotein metabolism, unspecified Prostate Specific Antigen Scr 6 Months I10 - Essential (primary) hypertension, Z12.5 - Encounter for screening for malignant neoplasm of prostate Medications: New amlodipine 10 mg PO DAILY 90 tabs 1RF 90 days I10 - Essential (primary) hypertension Discontinued amlodipine Discontinued Reason: Doctor's Order 5 mg PO DAILY 90 days 90 tabs 1RF I10 - Essential (primary) hypertension Patient Instructions: Goal: Blood pressure to remain below 140/90 Barriers: Adherence to physical activity and healthy eating habits
== END 2024-04-05 11:20 | disposition home or self-care (01) ==
PROVIDERS: PCP Physician Assistant; Visit Provider Physician Assistant
DX: I10 Essential (primary) hypertension (principal); R03.0 Elevated blood-pressure reading, without diagnosis of hypertension; R73.09 Other abnormal glucose

== ENCOUNTER → 2024-04-05 09:59 | Outpatient (BNVA) | payer OTHER, SELFPAY | PROVIDERS: PCP Physician Assistant; Visit Provider Physician Assistant ==

== ENCOUNTER 2024-09-23 08:23 | Outpatient (REF) | payer OTHER, SELFPAY ==
--- OUTSIDE RECORDS SUMMARY | 2024-09-23 08:27 | XMS_ITS ---
Author Organization [facility] Daniella selvin Richards Address [address] [place] [address] Care Team Providers Care Trial Justice Name Role Phone Darius Blanco Primary Care Provider Unavailab Radha Llamas Unavailable [phone] Allergies Allergen (clinical drug ingredient) Drug/Non Drug Allergy documented on EMR Reaction Allergy Type Onset Date Status lisinopril Lisinopril Unknown Drug Allergy Activ e REASON FOR VISIT Foot pain Medications Medication SIG (Take, Route, Fr equency, Duration) Notes Start Date End Date Status Medrol isaiah 4mg as directed orally a s directed for 6 days 06/07/2024 Active Atenolol 25 MG 1 tablet Orally Once a day for 30 days Active Allergy PRN Active Social History Tobacco Use: Social History Observation Description Date Details (start date - stop date) Never Smoker NA - NA Tobacco Use/Smoking Question Answer Notes Are you a: nonsmoker Additional Findings: Tobacco Non-User Current no n-smoker Alcohol Screen Question Answer Notes Did you have a drink containing alcohol in the p ast year? No Points 0 Interpretation Negative Tobacco use other than smoking: Question Answer Notes Are you an other tobacco user? No Problems Problem Type SNOMED Code ICD Code Onset Dates Problem Status W/U Status Risk Notes Problem Mononeuropathy of lower limb (609041776) Neuritis of left foot (G57.92) Active confirmed Problem [id number] Neuritis of left sural nerve (G57.82) Active confirmed Vital Signs Height 6ft in 06/07/2024 Weight 210 lbs 06/07/2024 BMI 28.48 kg/m2 06/07/2024 Blood pressure systolic 140 mm Hg 06/07/20 Blood pressure diastolic 90 mm Hg 024 Encounters Encounter Location Date Provider Diagnosis [facility] [place] [address] [place] [address] 06/07/2024 Radha Conroy Pain in left foot M79.672 ; Neuritis of left sural nerve G57.82 ; Bursitis of intermetatarsal bursa of left foot M77.52 ; Metatarsalgia, left foot M77.42 ; Neuritis of left foot G57.92 and Sprain of left foot, initial encounter S93.602A Assessments Encounter Date Diagnosis (ICD Code) Assessment Notes Treatment Notes Treatment Clinical Notes Section Notes 06/07/2024 Pain in left foot (ICD-10 - M79.672) 06/07/2024 Neuritis of left sural nerve (ICD-10 - G57.82) 06/07/2024 Bursitis of intermetatarsal bursa of left foot (ICD-10 - M77.52) 06/07/2024 Metatarsalgia, left foot (ICD-10 - M77.42) 06/07/2024 Neuritis of left foot (ICD-10 - G57.92) 06/07/2024 Sprain of left foot, initial encounter (ICD-10 - S93.602A) Plan Of Treatment Medication Medication Name Sig Start Date Stop Date Notes Medrol isaiah 4mg as directed orally as directed for 6 days 1 08/08/2023 Pending Test Test Name Order Date X ray : Foot, left 3V 06/07/2024 Next Appt Details Follow Up: prn, Reason: Progress Notes * Felix PERAZADOB: [birth year] (63 yo M)Acc No.[id number]:06/07/2024 Progress Note Patient:?Felix PERAZA Provider:?Radha Conroy DPM :1960???Age:63 Y???Sex:Male Wilian e:06/07/2024 Address:[address] [place] [address] [place] Pcp:Darius Blanco Subjective: * Chief Complaints: * ???Foot pain * HPI: ???Foot Pain:?Nature:?burning, tingling, shooting, radiating.?Location:?[place] Forefoot and??Midfoot, LEFT.?Duration:?since DOI [ late summer/Feb].?Onset:?states trauma ( twisted foot ).?Course:?worse , unresolved.?Aggravated:?any pressure, standing, walking, shoes.?Treatments:?rest/alter normal daily activity, change in shoes.? * ROS:?General/Constitutional:?Nausea?denies.?Vomiting?denies.?Hunger Thirst?denies.?Loss appetite?denies.?Chills?denies.?Fatigue?denies.?Fever?denies.?Night Sweats?denies.?Unexplained weight loss?denies.?Unexplained weight gain?denies.?HEENTM:?Dentures?denies.?Dizziness?denies.?Glasses/contacts?denies.?Retinopathy?de nies.?Blurred/double vision?denies.?TMJ?denies.?Discharge/drainage?denies.?Implants?denies.?Sore throat?denies.?Dental implants?denies.?Hard of hearing ?denies.?Difficulty chewing/swallowing/speaking?denies.?Nose bleeds?denies.?Sore mouth?denies.?Respiratory:?On Oxygen?denies.?Pneumonia/pleurisy?denies.?Bronchitis?denies.?Emphysema?denies.?C oughing?denies.?Cough blood?denies.?Shortness of breath?denies.?Wheezing?denies.?Cardiovascular:?Pacemaker?denies.?MVP?denies.?WPW?denies.?CHF?denies.?Heart attack?denies.?Septal defect?denies.?Rapid beat?denies.?Chest pain ?denies.?Atrial Fib.?denies.?Murmur/Palpitations?denies.?Gastrointestinal:?Hemorrhoids?denies.?Stomach/Abdominal pain?denies.?Dark blood stool?denies.?Irritable bowel ?denies.?Constipation?denies.?Diarrhea?denies.?Hematology:?Swelling?denies.?Clots?denies.?Varicose Veins?denies.?Bruising?denies.?Bleeding problem?denies.?Genitourinary:?Blood urine?denies.?Frequent/Painfu/urination/bladder control?denies.?Kidney stones?denies.?Infection (UTI)?denies.?Nephropathy?denies.?sex trans dis (STD)?denies.?Prostate?denies.?Musculoskeletal:?Hammertoes?denies.?Bunions?denies.?Back Pain?denies.?Muscle Cramps/ Resting?denies.?Muscle cramps / walking?denies.?Generalized aches and pains?denies.?Weakness?denies.?Integ.:?Ledezma?denies.?Scars?denies.?Corns/calluses?denies.?Ingrown nails?denies.?Painful nails?denies.?Open Sores?denies.?Rashes?denies.?Neurologic:?Difficulty sleeping?denies.?Brain disorder?denies.?Numbness?denies.?Balance trouble?denies.?Confusion?denies.?Fainting/blackouts?denies.?Tingling?denies.?Tr emors?denies.? * Medical History:? * Surgical History:?tonsillect louisa and adenoidectomy hernia * Hospitalization/Major Diagno stic Procedure:?Denies Past Hospitalization * Family History:?Mother: dece ased.?Father: , diagnosed with Other malignant neoplasm of unspecified site, Unspecified essential hypertension.? * Social History:?Tobacco Use:?Tobacco Use/Smoking?Are you a:?nonsmoker ?Additional Findings: Tobacco Non-User?Current non-smoker ?Tobacco use other than smoking?Are you an other tobacco user??No ???Drugs/Alcohol:?Drugs?Have you used drugs other than those for medical reasons in the past 12 months??No ?Alcohol Screen?Did you have a drink containing alcohol in the past year??No ?Points?0 ?Interpretation?Negative ???Miscellaneous:?Caffeine: yes, frequency:, 2 cups per day. ?Children: yes, 3 Step. ?Exercise: yes, Active. ?Marital status: . ?Occupation: Retired- [email or web address]. * Medications:?TakingAllergy , Notes to Pharmacist: PRNAtenolol 25 MG Tablet 1 tablet Orally Once a day Medication List reviewed and reconciled with the patientTaking Allergy , Notes to Pharmacist: PRNTaking Atenolol 25 MG Tablet 1 tablet Orally Once a day Medication List reviewed and reconciled with the patient * Allergies:?Lisinoprilyes[All ergies Verified] Objective: * Vitals:?Ht: 6ft, Wt:210, BMI :28.48, Shoe size: 10.5, BP:140/90mm Hg, Ht-cm: 182.88 cm, Wt-k.25 kg. * Examination: ???General Examination: ?GENERAL APPEARANCE:?Reveals a pleasant, alert, well-nourished, well- developed, well hydrated individual, who demonstrates proper attention to hygiene/body habitus, and is in no acute distress, Pt serves as own?historian for office visit today.?ORIENTED:?person, place, and time.?Neurological: ?SENSORY:?Neurological exam reveals intact sensorium, pain sensation normal, vibration sensation intact, pinprick sensation is normal in the lower extremities, Pt relates, burning, hyperesthesia, shooting/radiating sensation, Forefoot, Midfoot, Left.?Vascular: ?DP PULSES (B):?3/4, B/L.?PT PULSES (B):?3/4, B/L.?CAPILLARY FILL TIME:?immediate, all digits, B/L.?TROPHIC CONDITION-TEXTURE/ELASTICITY/TURGOR/HAIR GROWTH (B):?normal, B/L.?TEMPERTURE GRADIENT (C):?warm to cool, proximal to distal, B/L.?PIGMENTATION:?normal, B/L.?EDEMA (C):?absent, B/L.?Dermatologic: ?SKIN FINDINGS:?Skin exam reveals normal texture, elasticity, and turgor. There are no masses. The interspaces are clear.?Orthopedic: ?MUSCLE STRENGTH:?5/5 all groups in a symmetrical fashion , B/L.?MPJ PATHOLOGY:? Pain, and inflammation to 5 MPJ(s), LEFT, No MPJ pain with ROM, [ - ] Ecchymosis,?Pain on Metatarsal Palpation distal 1/3 shaft,5th,LEFT.?ANKLE PAIN LOCATED:?LEFT, No pain at, Sinus Tarsi.?X-Rays - IMAGING REPORT: ?Clinical Indication(s):? Evaluate for Fracture , Evaluate Biomechanical Deformity?.?Views:?3 views of Foot, AP, LAT, LO, LEFT??Taken by trained?Podiatric Various Exceptionalities Teacher (?TG ).?Findings:?normal bone and soft tissue density consistent for patients age and sex, lateral bowing 5th MT shaft.?Fracture:?Negative fractures identified.?Neuroma Pain: ?PALPATION:?No interspace pain noted on palpation, LEFT.? Assessment: * Assessment: 1.?Pain in left foot - M79.6 72???2.?Neuritis of left sural nerve - G57.82 (Primary)???Specify :Acute problem, Complicated w/ Multiple Tx Options(4)???3.?Bursitis of intermetatarsal bursa of left foot - M77.52???4.?Metatarsalgia, left foot - M77.42???5.?Neuritis of left foot - G57.92???Specify :Acute problem, Complicated w/ Multiple Tx Options(4),Dx New problem, Prognosis Uncertain (4)???6.?Sprain of left foot, initial encounter - S93.602A??? Plan: * Treatment: 2.?Bursitis of intermetatars al bursa of left foot? Start Medrol isaiah Tablet Therapy Pack, 4mg, as directed, orally, as directed, 6 days, 1 isaiah, Refills 0.?? * Procedure Codes:?24825 X-RAY EXAM OF LEFT FOOT 3V, Modifiers: 26 , LT * Preventive Medicine:? ??Counseling:?Discussion:?-14: Office or other outpatient visit for the evaluation and management of an established patient, which required a medically appropriate history and/or examination and MODERATE level of DECISION MAKING for: 1 OR MORE CHRONIC PROBLEM(S) THATS WORSENING, 2 STABLE CHRONIC PROBLEMS, A NEWLY DIAGNOSED PROBLEM WITH UNCERTAIN PROGNOSIS, AN ACUTE COMPLICATED INJURY WITH MULTIPLE TREATMENT OPTIONS, OR AN ACUTE PROBLEM WITH ACCOMPANYING SYSTEMIC SYMPTOMS, THAT POSE(S) A MODERATE RISK OF MORBIDITY. THIS CONDITION MAY ALSO INCLUDE RX DRUG MANAGEMENT, OR A DECISON FOR MINOR SURGERY. The visit on the day of the encounter encompassed interpreting the data and educating the patient as to the nature of their condition, treatment options available according to their individual PMH, meds, allergies, and overall health/living conditions, as well as any potential risks or complications that may occur from a failure to adhere to, and participate in, the recommended course of therapy. The discussion included a complete verbal, and/or written explanation of the examination results, any x-rays taken, the proposed diagnosis, and outline of the treatment plan. A schedule for future care needs was also explained. The patient verbalized an understanding of the instructions at this time and agreed to be an active participant in their treatment. If the patient should think of any questions or concerns after the visit, I have encouraged the patient to call the office.?Metatarsalgea:?I explained to the patient the possible etiologies of their Metatarsalgea Foot pain, including foot type/shoegear/activity level/exercise routine and the risks/benefits of all the different treatment options for pain including: No treatment at all, Rest, Ice, NSAIDs(only if well tolerated after meals), New/supportive Shoe gear, Strappings and Tapings, Foot/Ankle AFO Bracing, Stretching exercises, Deep Tissue Massage, Arch support/shoe inserts, Custom orthoses, Topical analgesics including Aspercream/Voltaren gel, Physical Therapy, Cortisone injection therapy, EPAT/ESWT. Advantages and disadvantages of each option were discussed and the patients questions re: shoe gear, custom vs prefabricated inserts, activity level, PO vs Topical medications (and their respective potential complications/drug interactions/side effects), and consistency in home treatment regimens for optimal success were answered to their verbally confirmed satisfaction.?Neuritis/Neuropathy:?The patient was counseled on the diagnosis, possible etiologies (including mechanical stress, injury, entrapment, chemotherapy, diabetes, vertebral disk herniation if hx), treatment options, and importance for adherence to recommendations in order to address the patients Neuritis/Neuropathy. The advantages and disadvantages re: Accomidative mechanical support/offloading, Topical vs PO analgesics including Aspercream/Voltaren gel/Lidoderm patches/Neurontin/Lyrica along with their potential side effects were discussed with the patient to their satisfaction. Also discussed the use of therapeutic injectable cortisone if needed. Surgical treatment, if considered an option, was discussed as well. If surgery is warranted, we discussed the potential successful outcomes as well as the possible complications such as failure, painful scar, permanent tingling/numbness/neuralgea/or intractable pain. Patient questions re: medication use, dosage, and possible side effects and drug interactions were reviewed and the answers to each understood. If the condition worsens, the patient was instructed to contact the office for an appointment. The patient verbally confirmed a full understanding of the above, Custom Topical pain control compound combination therapy was recommended and Rxed.?Orthotics:?I explained to the patient the benefits of OT use. I explained that orthoses are medically necessary to decrease the foot pain through proper mechanical control, support of their foot, decrease pain under the painful metatarsal by supplementing the soft tissue, cushion the forefoot by supplementing the soft tissue, I explained to the patient the benefits of OT use. I explained that orthoses are medically necessary to decrease the foot pain through proper mechanical control, support of their foot, The patient was asked to seriously consider this important treatment option.?P.R.I.C.E.:?The patient was counseled on the use of P.R.I.C.E. and NSAIDS (if well tolerated) to aid in the recovery from their painful condition.?Shoe Gear Counseling:?The patient and I reviewed the types of shoes they should be wearing. My recommendation included obtaining a well-fitted shoe with a good supportive, non-foldable nor twistable sole, plenty of toe/room for the forefoot, and proper arch support. Based on todays examination, I recommended the patient look for new shoes, by having their feet professionally measured. We discussed that generally the best time of the day for a shoe fitting is the afternoon. Different shoes types and brands to best match the patients occupation and vocation were discussed. Specific brand selection will be up to the patient, their individual foot condition/deformities, and fit. The patient and I reviewed the standard new shoe break in period by wearing them for a few hours a day while checking for redness or sores as wear time is increased. The patient verbally confirmed to understanding the information discussed, The patient and I reviewed the types of shoes they should be wearing. My recommendation included obtaining a well-fitted shoe with a good supportive, non-foldable nor twistable sole, plenty of toe/room for the forefoot, and proper arch support. Based on todays examination, I recommended the patient look for new shoes, by having their feet professionally measured. We discussed that generally the best time of the day for a shoe fitting is the afternoon. Different shoes types and brands to best match the patients occupation and vocation were discussed. Specific brand selection will be up to the patient, their individual foot condition/deformities, and fit. The patient and I reviewed the standard new shoe break in period by wearing them for a few hours a day while checking for redness or sores as wear time is increased. The patient verbally confirmed to understanding the information discussed.?Steriod Injection:?I explained that a steroid and local anesthetic injections are administered to relieve pain and inflammation and thereby meant to improve function. I explained the possible complications including but not limited to signs/symptoms of steroid flare, infection, bruising, atrophy, discoloration of skin, change/deviation in toe position, and that additional injections may be necessary, cortisone post-injection informative educational handout was dispensed to and reviewed with the patient, In order to prevent any compromise of an effective immune response, it was recommended the patient refrain from any vaccine therapy for the month before or after injection. Patient verbally confirmed understanding the previously mentioned protocol, I explained that a steroid and local anesthetic injections are administered to relieve pain and inflammation and thereby meant to improve function. I explained the possible complications including but not limited to signs/symptoms of steroid flare, infection, bruising, atrophy, discoloration of skin, change/deviation in toe position, and that additional injections may be necessary, cortisone post-injection informative educational handout was dispensed to and reviewed with the patient, Pt defers injection today.?X-rays:?Discussed and reviewed the X-rays with the patient. We discussed how the findings relate to the patients symptoms/complaints. Answered any and all questions..? * Follow Up:?prn * Images: * Sign off status: Completed true * Provider:?Radah Conroy DPM Date:? Generated for Alma dunham/Karina/Rell on:?09/23/2024 08:27 AM EDT History and Physical Notes * HPI (History of Present Illness) Category Sub-Category Detail Notes Category Not es Foot Pain Nature: burning, tingling, shooting, radiating Location: [place] Forefoot and Midfoot, LEFT Duration: since DOI [ late /Sept] Onset: states trauma ( twis luis foot ) Course: worse , unresolved Aggravated: any pressure, standi ng, walking, shoes Treatments: rest/alter normal da nathaly activity, change in shoes Examination Category Sub-Category Detail Notes Category Not es Neuroma Pain PALPATION: No interspace pa in noted on palpation, LEFT Neurological SENSORY: Neurological exa m reveals intact sensorium, pain sensation normal, vibration sensation intact, pinprick sensation is normal in the lower extremities, Pt relates, burning, hyperesthesia, shooting/radiating sensation, Forefoot, Midfoot, Left Dermatologic SKIN FINDINGS: Skin exam reveal s normal texture, elasticity, and turgor. There are no masses. The interspaces are clear Orthopedic ANKLE PAIN LOCATED: LEFT, No pain at, Sin us Tarsi MPJ PATHOLOGY: Pain, and inflammati on to 5 MPJ(s), LEFT, No MPJ pain with ROM, [ - ] Ecchymosis, Pain on Metatarsal Palpation distal 1/3 shaft,5th,LEFT MUSCLE STRENGTH: 5/5 all groups in a symmetrical fashion , B/L General Examination GENERAL APPEARANCE: Reveals a pleasant, alert, well- nourished, well-developed, well hydrated individual, who demonstrates proper attention to hygiene/body habitus, and is in no acute distress, Pt serves as own historian for office visit today ORIENTED: person, place, and t lissa Vascular DP PULSES (B): 3/4, B/L PT PULSES (B): 3/4, B/L CAPILLARY FILL TIME: immediate, all digi ts, B/L TEMPERTURE GRADIENT (C): warm to cool, p roximal to distal, B/L TROPHIC CONDITION-TEXTURE/ELASTICITY/TURGOR/HAIR GROWTH (B): normal, B/L EDEMA (C): absent, B/L PIGMENTATION: normal, B/L X-Rays - IMAGING REPORT Findings: normal b one and soft tissue density consistent for patients age and sex, lateral bowing 5th MT shaft Fracture: Negative fractures i dentified Views: 3 views of Foot, AP, LAT, LO, LEFT Taken by trained Podiatric Various Exceptionalities Teacher ( TG ) Clinical Indication(s): Evaluate for Fra cture , Evaluate Biomechanical Deformity
--- OUTSIDE RECORDS SUMMARY | 2024-09-23 08:27 | XMS_ITS | Patient Health Record ---
Author Organization [facility] Daniella montalvo [place] Address [address] [place] [address] Care Team Providers Care Commercial Lines Account Manager Name Role Phone Darius Blanco Primary Care Provider Unavailab Radha Llamas Unavailable [phone] Allergies Allergen (clinical drug ingredient) Drug/Non Drug Allergy documented on EMR Reaction Allergy Type Onset Date Status lisinopril Lisinopril Unknown Drug Allergy Activ e Reason For Referral No Information Medications Medication SIG (Take, Route, Fr equency, Duration) Notes Start Date End Date Status Medrol isaiah 4mg as directed orally a s directed for 6 days 06/07/2024 Active Atenolol 25 MG 1 tablet Orally Once a day for 30 days Active Allergy PRN Active Immunizations Vaccine Route Administration Date Status Comme nts COVID-19 Moderna Vaccine Unknown 04/15/2021 Administered 1st 10/2020 2nd 11/2020 Social History Tobacco Use: Social History Observation [...] Risk Notes Problem Mononeuropathy of lower limb (440446572) Neuritis of left foot (G57.92) Active confirmed Problem [id number] Neuritis of left sural nerve (G57.82) Active confirmed Vital Signs Blood pressure diastolic 90 mm Hg 06/07/2024 Height 6ft in 06/07/2024 Blood pressure systolic 140 mm Hg 06/07/2024 Weight 210 lbs 06/07/2024 BMI 28.48 kg/m2 06/07/2024 Encounters Encounter Location Date Provider Diagnosis [facility] [place] [address] [place] [address] 06/07/2024 Radha Perica Pain in left foot M79.672 ; Neuritis [...] encounter (ICD-10 - S93.602A) Plan Of Treatment Pending Test Test Name Order Date X ray : Foot, left 3V 06/07/2024 Insurance Providers Payer Name Payer Address Payer Phone Subscriber Number Group Number Insured Name Patient Relationship to Insured Coverage Start Date Coverage End Date [facility] [address] [place] [address] [id number] Felix Erazo Self - patient is the insured Medical (General) History Medical History History ICD Code High blood pressure Chicken pox Measles Surgical History Surgery Date(Month/Year) tonsillectomy and adenoidectomy 1960s hernia 1960s
[2024-09-23 10:51] LABS: Creatinine Urine 213.19 mg/dL; Microalbum/Creatinine Ratio Ur 4.6 ug/mg cr (<30)
[2024-09-23 10:53] LABS: Estimated Average Glucose 100 mg/dL; Hemoglobin A1C 138.8206 umol/L; Hemoglobin A1c % 5.1 % (<6.0); Total Hemoglobin (HGBA1C) 4284.1661 umol/L
[2024-09-23 11:04] LABS: Alanine Aminotransferase 21 U/L (0-40); Albumin Level 4.2 g/dL (3.5-5.0); Alkaline Phosphatase 71 U/L (39-117); Anion Gap 11 (12-20); Aspartate Amino Transferase 25 U/L (5-37); Bilirubin Total 0.8 mg/dL (0.0-1.0); Blood Urea Nitrogen 16 mg/dL (9-16); Calcium 9.4 mg/dL (8.4-10.2); Carbon Dioxide 26 mmol/L (22-29); Chloride 107 mmol/L (96-108); Cholesterol 210 mg/dL (<200); Estimated Glomerular Filt Rate > 60; Glucose Fasting 104 mg/dL (60-99); HDL Cholesterol 40 mg/dL (>40); LDL Cholesterol Calculated 146 mg/dL (<100); Potassium 3.9 mmol/L (3.3-5.1); Sodium 140 mmol/L (135-145); Total Protein 6.8 g/dL (6.5-8.0); Triglycerides 123 mg/dL (<150)
[2024-09-23 11:20] LABS: Prostate Specific Antigen Scr 3.46 ng/mL (<0.05-4.0)
== END 2024-09-23 08:24 | disposition home or self-care (01) ==
LOC: HO.HMGCLDS 08:23
PROVIDERS: PCP Physician Assistant; Visit Provider Physician Assistant
DX: I10 Essential (primary) hypertension (principal); R73.09 Other abnormal glucose; E78.9 Disorder of lipoprotein metabolism, unspecified; Z12.5 Encounter for screening for malignant neoplasm of prostate
CPT/HCPCS: 36415; 80053; 80061; 82043; 82570; 83036; 84153

== ENCOUNTER 2024-10-04 09:33 | Outpatient (AMB) | payer OTHER, SELFPAY ==
--- NOTE | 2024-10-04 09:55 | MHC.PC.OV ---
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 Required: No Accompanied by: Self / Same As Patient Allergies lisinopril Allergy (Unknown, Verified 10/04/24 10:06) Unknown No Known Allergies [No Known Allergies*] Allergy (Verified 10/04/24 10:06) Medication List - Last Reconciled 10/04/24 by Darius Blanco PA-C amlodipine 10 mg PO DAILY 90 days atenolol 25 mg PO DAILY ibuprofen 800 mg PO Q8H PRN 10 days ivermectin 1% 1 appl topical DAILY PRN 14 days metronidazole 0.75% 1 appl topical DAILY PRN 15 days triamcinolone acetonide 0.1% 1 appl topical DAILY 15 days Tobacco use date assessed: 10/04/24 Dental Screening Dental Screen Date: 10/04/24 Did you have a dental visit in the last 12 months?: Yes Did you have a dental problem in the last 6 months where you did not have access to dental care?: No Was dental information given to patient?: Patient has dentist HPI annual exam HPI Details Patient is a 64 -year-old male here today for routine annual physical ? Patient has a past medical history hypertension, impaired glucose metabolism, borderline high cholesterol. concerns--> continues to have chronic foot pain, seen a gas fitter apprentice and was given an anti-inflammatory though was not effective. He does report the pain got a little better though has been keeping him from being more physically active. ? .. ? Hypertension: Blood pressure today in office acceptable. He is now on amlodipine 10 mg has better control of his blood pressure has not been regularly monitoring his blood pressure at home. ? . ? .. ? Borderline high cholesterol:? Patient's most recent cholesterol panel showing much elevated total cholesterol and LDL. He reports some dietary indiscretion. He will continue working on lifestyle and dietary modifications Impaired glucose metabolism:? Most recent blood sugar slightly elevated, does admit to eating sweets often.. He attributes his elevations in his blood sugar due to his diet.? He will try to work on reducing his sugar at night.? Most recent A1c of 5.1 Colon cancer screening: Cologaurd done in 2022- neg Vaccine: UTD with COVID vaccine, FLu , Tdap, Considering shingrex, Considering PCV-20 Laboratory Tests 03/30/24 09/23/24 11:36 08:26 Creatinine 0.84 Fasting Glucose 97 104 H Hemoglobin A1c % 5.1 Cholesterol 177 210 H LDL Cholesterol, C alc 123 H 146 H PSA Screen 3.46 Urine Microalbumin 10.0 PFSH Medical History Adenomyoma of gallbladder Acne rosacea Family History Brother Prostate CA Father Prostate CA Mother Brain tumor Social History Housing: House Alcohol intake: never Patient Tobacco Use Status: Never used Tobacco e-Cigarette/Vaping Use: Never Used Second Hand Smoke Exposure: No service: No Current occupational status: retired Current occupation: [employer] Cognitive needs: No Hearing needs: No Vision needs: No Questionnaire PHQ-9 Over the last 2 weeks, how often have you been bothered by any of the following problems? 1. Little interest or pleasure in doing things: not at all 2. Feeling down, depressed, or hopeless: not at all 3. Trouble falling or staying asleep, or sleeping too much: not at all 4. Feeling tired or having little energy: not at all 5. Poor appetite or overeating: not at all 6. Feeling bad about yourself - or that you are a failure or have let yourself or your family down: not at all 7. Trouble concentrating on things, such as reading the newspaper or watching television: not at all 8. Moving or speaking so slowly that other people could have noticed. Or the opposite - being so fidgety or restless that you have been moving around a lot more than usual: not at all 9. Thoughts that you would be better off or of hurting yourself in some way: not at all Total score: 0 Depression Screening Interpretation: Negative Depression Screening Done: Yes 41206 - PHQ-9 Billing: Yes Source: Developed by Drs. Lane Elias, Carmen Clark, Elliot Gilmore and colleagues, with an educational jigna from [employer]. Thrive Questionnaire Date Thrive assessed: 10/04/24 I am a: Patient What is your living situation today?: I have a steady place to live Within the past 12 months, did the food you bought not last and you didn't have the money to get more?: I choose not to answer this question Within the past 12 months, did you worry whether your food would run out before you got money to buy more?: Never true Do you have trouble paying for medicines?: I choose not to answer this question Do you have trouble getting transportation to medical appointments?: I choose not to answer this question Do you have trouble paying your heating and electricity bill?: I choose not to answer this question Do you have trouble taking care of your child, family member or friend?: I choose not to answer this question Do you have trouble with day-to-day activities such as bathing, preparing meals, shopping, managing finances, etc.?: No Are you currently unemployed and looking for a job?: I choose not to answer this question Are you interested in more education?: I choose not to answer this question Please select the resources that you would like help with: None Currently or been in a relationship where the following occur: I choose not to answer THRIVE Score: 0 AUDIT C Alcohol Use Questionnaire (AUDIT-C) 1. How often do you have a drink containing alcohol?: Never 3. How often do you have six or more drinks on one occasion?: Never Total Score: 0 SUSHIL-7 AMB Questionnaire SUSHIL-7 Date SUSHIL - 7 assessed: 10/04/24 Feeling nervous, anxious, or on edge: 1 = Several days Not being able to stop or control worryin = Several days Worrying too much about different things: 1 = Several days Trouble relaxin = More than half the days Being so restless that it is hard to sit still: 1 = Several days Becoming easily annoyed or irritable: 1 = Several days Feeling afraid as if something awful might happen: 1 = Several days Total SUSHIL-7 score (0-4 normal; 5-9 mild; 10-14 moderate; 15-21 severe): 8 Source: Developed by Drs. Lane Elias, Carmen Clark, Elliot Gilmore and colleagues, with an educational jigna from [employer]. SUSHIL-7 Assessment Billing SUSHIL-7 Assessment Tool: SUSHIL-7 Assessment 84086 Review of Systems Const Denies body aches, Denies chills, Denies excessive sweating, Denies fatigue, Denies fever(s) and Denies headache(s) Eyes Denies blurry vision ENT Denies dysphagia, Denies vertigo, Denies dizziness, Denies headache(s), Denies hearing loss and Denies tinnitus Card Denies chest pain, Denies chest pain with activity, Denies syncope, Denies irregular heart rhythm and Denies dyspnea Resp Denies chest congestion, Denies cough, Denies hemoptysis, Denies dyspnea and Denies wheezing GI Denies abdominal pain, Denies melena, Denies hematochezia, Denies coffee ground emesis, Denies dysphagia, Denies diarrhea, Denies nausea and Denies vomiting Denies difficulty urinating, Denies dysuria, Denies urinary frequency, Denies urinary hesitancy and Denies urinary urgency Musc Denies arthralgias, Denies limited range of motion, Denies muscle cramps and Denies muscle weakness Skin/Breast Denies rash and Denies skin ulcer Neuro Denies Abnormal speech present, Denies confusion, Denies vertigo, Denies dizziness, Denies syncope, Denies headache(s), Denies memory loss and Denies seizure-like activity Psych Denies anxiety, Denies confusion, Denies depression, Denies memory loss, Denies panic attacks and Denies paranoia Endo Denies excessive sweating, Denies fatigue, Denies flushing, Denies polydipsia and Denies polyuria Aller/Immun Denies wheezing Physical exam (Primary Care) Vital Signs: Last Vital Signs Temp 97.1 F 10/04/24 10:00 Pulse 69 10/04/24 10:00 BP 134/80 10/04/24 10:00 Pulse Ox 97 10/04/24 10:00 Oxygen Delivery Method Room Air 10/04/24 10:00 BMI result Body Mass Index 30.3 Tobacco/Smoking Status: Tobacco use Status Tobacco use date assessed 10/04/24 10/04/24 10:01 Patient Tobacco Use Status Never used Tobacco 10/04/24 09:55 e-Cigarette/Vaping Use Never Used 10/04/24 09:55 PHQ-9: PHQ-9 Score PHQ-9: Total score 0 10/04/24 09:55 Depression Screening Interpretation: Negative Thrive Assessment: Date of Thrive Assessment Date Thrive assessed 10/04/24 10/04/24 09:55 Currently or been in a relationship where the following occur: I choose not to answer Const General: cooperative, comfortable, no acute distress, alert and awake; No confusion Orientation/consciousness: oriented to person, oriented to place, patient oriented x3 and No confusion HENMT Head: Yes normocephalic Ears: external ears normal and TM's normal bilaterally Face and sinus: No sinus tenderness Mouth: Normal oral and palatal mucosa present and tongue normal Teeth and gingiva: dentition normal and gingiva normal Throat: Yes posterior oropharynx normal, Yes tonsils normal and Yes uvula midline Eyes Conjunctivae: conjunctivae normal Sclerae: sclerae normal Pupils: Equal, round and reactive pupils present EOM: EOMs intact bilaterally Direct Ophthalmoscopy: No no photophobia Neck Neck: Yes no lymphadenopathy, No tender and Yes no JVD Thyroid: Thyroid normal Carotids: no bruits Chest Chest palpation & inspection: no tenderness Resp Effort & Inspection: normal respiratory effort, no audible wheezes, not labored and no stridor Auscultation: no crackles, no rales, no rhonchi and no wheezes Cardio Jugular venous distension: no JVD Rate: regular rate, not bradycardic and not tachycardic Rhythm: regular rhythm Bruits: no carotid bruits Peripheral pulses: Peripheral pulses 2+ throughout GI Inspection: Yes normal to inspection, No abdominal wall ecchymosis and No visible herniation Palpation (GI): Soft to palpation, nontender, no guarding, not rigid and No hepatosplenomegaly present Auscultation: normoactive bowel sounds General: Yes no CVA tenderness Back/Spine/Pelvis Back: no CVA tenderness and No back tenderness Cervical Spine: cervical ROM normal Thoracic/Lumbar Spine: thoracic and lumbar spine normal to inspection, straight leg raise negative bilaterally, No thoraco-lumbar ROM limited and No lumbar spinal tenderness Skin Lesions: no lesions Rashes: no rashes Wounds: no wounds Neuro General: oriented to person, oriented to place, patient oriented x3, CN's II-XI intact bilaterally and No confusion Cranial nerves: Yes Equal, round and reactive pupils present and Yes Normal accommodation reflex present Cognition (Neuro): normal cognition Speech: No Abnormal speech present Gait exam (Neuro): Normal gait present Motor exam (neuro): 5/5 motor strength present throughout Extrem Right upper extremity: full ROM; no cyanosis Left upper extremity: full ROM; no cyanosis Right lower extremity: no edema Left lower extremity: no edema Psych Appearance: grossly normal Mental Status: mental status grossly normal Affect: normal affect Attitude: cooperative Thought process: Normal thought process present Coding Level of Care Code Est Pt Prev Care 40-64y(43018) Diagnoses Annual physical exam Z00.00 Borderline high cholesterol E78.9 Essential hypertension I10 Hypertension type: essential hypertension Impaired glucose metabolism R73.09 SUSHIL (generalized anxiety disorder) F41.1 Additional Codes SUSHIL-7 Assessment Billing - SUSHIL-7 Assessment Tool: SUSHIL-7 Assessment 21227 ([id number]) PHQ-9 - 31035 - PHQ-9 Billing: Yes ([id number]) Assessment & Plan Assessment & Plan (1) Annual physical exam: Code(s): Z00.00 - Encounter for general adult medical examination without abnormal findings Category: Medical Plan: As per HPI (2) Borderline high cholesterol: Code(s): E78.9 - Disorder of lipoprotein metabolism, unspecified Category: Medical Plan: Patient's most recent lipid panel showing borderline high cholesterol. He does admit to dietary indiscretion and a being a bit inactive during the winter months. He will work on lifestyle and dietary modifications. Goal total cholesterol to be below 200 (3) HTN (hypertension): Code(s): I10 - Essential (primary) hypertension Category: Medical Qualifiers: Hypertension type: essential hypertension Qualified Code(s): I10 - Essential (primary) hypertension Plan: Patient's blood pressure acceptable today in office we have increased his amlodipine to 10 mg and has better control of his blood pressure. Advised to continue monitoring blood pressure with goal blood pressure to be below 140/90 (4) Impaired glucose metabolism: Code(s): R73.09 - Other abnormal glucose Category: Medical Plan: Most recent fasting blood sugar has improved. A1c not in diabetic range. He will continue lifestyle and dietary modifications to control his fasting blood sugars (5) SUSHIL (generalized anxiety disorder): Code(s): F41.1 - Generalized anxiety disorder Category: Medical Plan: Patient's SUSHIL-7 score positive for anxiety which has been existing condition for him. He is not interested in anxiety medication her mental health therapy at this time. He attributes his anxious symptoms to stress in his personal life. Orders: Orders Comprehensive [place]. Panel Fast Today R73.09 - Other abnormal glucose Lipid Panel Today E78.9 - Disorder of lipoprotein metabolism, unspecified Hemoglobin A1c Today R73.09 - Other abnormal glucose Microalbumin, Random (w Creat) Today I10 - Essential (primary) hypertension Complete Blood Count no Diff Today I10 - Essential (primary) hypertension Patient Instructions: Goal: Blood pressure to be below 140/90, total cholesterol to be below 200 Barriers: Adherence to physical activity and healthy eating habits
[2024-10-04 10:00] VITALS: BP 134/80; PULSE 69; TEMP 36.2; O2SAT 97; BMI 30.3
--- OUTSIDE RECORDS SUMMARY | 2024-10-04 10:34 | XMS_ITS ---
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) Active confirmed Vital Signs Height 6ft in 06/07/2024 Weight 210 lbs 06/07/2024 BMI 28.48 kg/m2 06/07/2024 Blood pressure systolic 140 mm Hg 06/07/20 Blood pressure diastolic 90 mm Hg 024 Encounters Encounter Location Date Provider Diagnosis [facility] [place] [address] [place] [address] 06/07/2024 Radha Conroy Pain in left foot [...] * Felix PERAZADOB: 2 (63 yo M)Acc No.[id number]:06/07/2024 Progress Note Patient:?Felix PERAZA Provider:?Radha Conroy DPM :1960???Age:63 Y???Sex:Male Wilian e:06/07/2024 Address:[address] [place] [address] [place], [place] Pcp:Darius Blanco Subjective: * Chief Complaints: * [...] yes, Active. ?Marital status: . ?Occupation: Retired- [employer]. * Medications:?TakingAllergy , Notes to Pharmacist: PRNAtenolol [...] Foot, AP, LAT, LO, LEFT??Taken by trained?Pod[facility]ing Unit Floorhand (?TG ).?Findings:?normal bone and soft tissue density [...] days, 1 isaiah, Refills 0.?? * Procedure Codes:?05841 X-RAY EXAM OF LEFT FOOT 3V, Modifiers: [...] * Sign off status: Completed true * Provider:?Rdaha Conroy DPM Date:? Generated for Alma dunham/Karina/Rell on:?10/04/2024 10:34 AM EDT History and Physical Notes * [...] LAT, LO, LEFT Taken by trained Pod[facility] Pulling Unit Floorhand ( TG ) Clinical Indication(s): Evaluate for Fra cture , Evaluate Biomechanical Deformity
--- OUTSIDE RECORDS SUMMARY | 2024-10-04 10:34 | XMS_ITS | Patient Health Record ---
Author Organization [facility] Daniella montalvo [place] Address [address] [facility] [place] [address] Care Team Providers Care Oil Inspector Name Role Phone Darius Blanco Primary Care Provider Unavailab Radha Llamas Unavailable [phone] Allergies Allergen (clinical drug ingredient) Drug/Non Drug [...] Risk Notes Problem Mononeuropathy of lower limb (699336512) Neuritis of left foot (G57.92) Active confirmed Problem [id number] Neuritis of left sural nerve (G57.82) Active confirmed Vital Signs Blood pressure diastolic 90 mm Hg 06/07/2024 Height 6ft in 06/07/2024 Blood pressure systolic 140 mm Hg 06/07/2024 Weight 210 lbs 06/07/2024 BMI 28.48 kg/m2 06/07/2024 Encounters Encounter Location Date Provider Diagnosis [facility] [place] [address] [place] [address] 06/07/2024 Radha Perica Pain in left foot [...] Insured Coverage Start Date Coverage End Date [facility] [address] [place] [address] [id number] Felix Erazo Self - patient is the insured Medical (General) History Medical History History ICD Code High blood pressure Chicken pox Measles Surgical History Surgery Date(Month/Year) tonsillectomy and adenoidectomy 1960s hernia 1960s
== END 2024-10-04 10:25 | disposition home or self-care (01) ==
LOC: HO.HMCH 09:34
PROVIDERS: PCP Physician Assistant; Visit Provider Physician Assistant
DX: Z00.00 Encounter for general adult medical examination without abnormal findings (principal); E78.9 Disorder of lipoprotein metabolism, unspecified; I10 Essential (primary) hypertension; R73.09 Other abnormal glucose; F41.1 Generalized anxiety disorder

== ENCOUNTER → 2024-10-04 09:33 | Outpatient (BNVA) | payer OTHER, SELFPAY | PROVIDERS: PCP Physician Assistant; Visit Provider Physician Assistant | DX: Z00.00 Encounter for general adult medical examination without abnormal findings (principal); E78.9 Disorder of lipoprotein metabolism, unspecified; I10 Essential (primary) hypertension; R73.09 Other abnormal glucose; F41.1 Generalized anxiety disorder; Z79.899 Other long term (current) drug therapy | CPT/HCPCS: 96127 ==

== ENCOUNTER 2025-02-14 12:51 | Outpatient (AMB) | payer OTHER, SELFPAY ==
[2025-02-14 13:25] VITALS: BP 142/80; PULSE 65; TEMP 36.7; O2SAT 96; BMI 29.4
--- NOTE | 2025-02-14 13:25 | MHC.OFFWIV ---
Intake Vital Signs 02/14/25 13:25 Height 5 ft 11 in Weight 211 lb BMI 29.4 BP 142/80 H Blood Pressure Location Lt brachial Position Sitting Pulse 65 Pulse Source Pulse Oximeter Temp 98.0 F Temp Source Oral Pulse Oximetry (%) 96 Oxygen Delivery Method Room Air Intake Visit Reasons: ep knee pain Intake Note: pt presents with right knee for about 10 days Patient Tobacco Use Status: Never used Tobacco Allergies lisinopril Adverse Reaction (Intermediate, Verified 02/14/25 13:26) Hypertension Do you need a note to return to daycare/school/sports/work: No HPI HPI Comments History of Present Illness Details History - The patient is a 64-year-old male presenting with right knee pain. - The knee pain began 10 days ago without a specific injury. - Altered gait due to hip soreness may have contributed to the knee pain. - Ibuprofen provides partial relief but does not fully resolve the pain. - Initial limitation in knee extension has resolved. - Had this happen before and prednisone worked well so he would like it again. Physical Exam General: Cooperative, healthy appearing, comfortable, no acute distress and well developed Orientation: Patient oriented x3 Limitations: Right knee pain, affecting movement initially, but able to kick leg out completely now Head: Normal to inspection Ears: Hearing grossly normal bilaterally Nose: Normal External nose present Face and sinus: Normal facial exam Mouth: normal, moist oral mucosa Eyes: Appearance normal, both eyes and all related structures Neck: Normal visual inspection and Yes full ROM Respiratory: Normal respiratory effort and able to speak in complete sentences. Skin: no rashes or lesions noted Neuro: Patient oriented x3 Extremities: right knee with TTP medial aspect, full ROM, no skin changes. [facility] Medical History Adenomyoma of gallbladder Acne rosacea Family History Brother Prostate CA Father Prostate CA Mother Brain tumor Social History Housing: House Alcohol intake: never Patient Tobacco Use Status: Never used Tobacco e-Cigarette/Vaping Use: Never Used Second Hand Smoke Exposure: No service: No Current occupational status: retired Current occupation: [employer] Cognitive needs: No Hearing needs: No Vision needs: No Review of Systems Const All systems reviewed & are unremarkable except as noted in HPI and below Physical Exam Vital Signs: Last Vital Signs Temp 98.0 F 02/14/25 13:25 Pulse 65 02/14/25 13:25 BP 142/80 H 02/14/25 13:25 Pulse Ox 96 02/14/25 13:25 Oxygen Delivery Method Room Air 02/14/25 13:25 BMI result Body Mass Index 29.4 Assessment & Plan Assessment & Plan (1) Right medial knee pain: Code(s): M25.561 - Pain in right knee Plan: Plan Patient was informed and verbally consented to the use of an ambient scribe for clinic note documentation during this visit Right Knee Pain - SoluMedrol Dosepak prescribed for inflammation control with a 6-day taper. - Rest and ice application advised; avoid ibuprofen due to GI risks. - Prednisone to be taken in the morning to prevent sleep disturbances. - Follow up with PCP if no improement in symptoms after solumedrol Medications: New methylprednisolone PO PER PKG DIR for 6 days 21 ea 0RF Coding Level of Care Code Est Pt Level 3 (27438) Diagnoses Right medial knee pain M25.561
== END 2025-02-14 14:04 | disposition home or self-care (01) ==
PROVIDERS: PCP Physician Assistant; Visit Provider Physician Assistant
DX: M25.561 Pain in right knee (principal)

== ENCOUNTER 2025-02-27 09:31 | Outpatient (REF) | payer OTHER, SELFPAY ==
--- NOTE | ~2025-02-27 | XR_ITS ---
EXAMINATION: XR KNEE, RIGHT CLINICAL INFORMATION: M25.561 - Pain in right knee COMPARISON: None available. TECHNIQUE: AP oblique and lateral views of the right knee. FINDINGS: No acute cortical disruption or malalignment. No lytic or blastic lesions. No suprapatellar bursa joint effusion. Small exostosis at the quadriceps tendon insertion. No gross soft tissue calcifications. No vascular calcifications. XR/XR knee RT 4V IMPRESSION: No acute fracture or dislocation. Enthesopathy, quadriceps tendon. Electronically signed by: Manuel Lugo MD 02/27/2025 11:42 AM EDT
== END 2025-02-27 09:32 | disposition home or self-care (01) ==
LOC: HO.HMGCX 09:31
PROVIDERS: PCP Physician Assistant; Visit Provider Physician Assistant Medical
DX: M25.561 Pain in right knee (principal)
CPT/HCPCS: 73564

== ENCOUNTER 2025-02-27 09:31 | Outpatient (AMB) | payer OTHER, SELFPAY ==
[2025-02-27 10:29] VITALS: BP 138/80; PULSE 66; TEMP 36.6; O2SAT 98; BMI 29.1
--- NOTE | 2025-02-27 10:29 | MHC.OFFWIV ---
Intake Vital Signs 02/27/25 10:29 Height 5 ft 11 in Weight 209 lb BMI 29.1 BP 138/80 Blood Pressure Location Lt brachial Position Sitting Pulse 66 Pulse Source Pulse Oximeter Temp 97.9 F Temp Source Oral Pulse Oximetry (%) 98 Oxygen Delivery Method Room Air Intake Visit Reasons: EP-rt knee pain Intake Note: pt presents with unresolved pain to medial right knee medial-pain worsens on incline and declines Patient Tobacco Use Status: Never used Tobacco Allergies lisinopril Adverse Reaction (Intermediate, Verified 02/27/25 10:31) Hypertension Do you need a note to return to daycare/school/sports/work: No HPI HPI Comments History of Present Illness Details History of Present Illness - The patient is a 64-year-old male presenting with right knee pain. - The knee pain began two weeks ago without any known inciting event and is described as shooting pain, with warmth and tenderness. - Pain exacerbates with pressure and ambulation, leading to an altered gait. - He was seen here on 02/14 with the same pain on the medial aspect of the right knee. - Prednisone provided partial relief, but symptoms have recurred. - Aleve has been used for temporary pain relief. - No history of gout or knee injuries is reported. - A nerve pinch sensation is noted in the right knee during walking. - Hip soreness is present, likely due to compensatory gait changes. - He denies trauma or falls, numbness, tingling, calf pain, ankle pain, or foot pain. Physical Exam General: Cooperative, healthy appearing, comfortable, no acute distress and well developed Respiratory: Normal respiratory effort and able to speak in complete sentences. Clear to auscultation bilaterally Cardiovascular: Regular rate and rhythm. Normal S1 and S2 Skin: No rashes or lesions noted. No erythema or warmth noted. Musculoskeletal: No swelling or deformity noted of the knee. FROM of the knee. No click noted. No TTP of the patella, medial or lateral condyle, medial or lateral meniscus, or posterior fossa. Negative anterior drawer test. Negative Piter noted. DTR are 1+ on the LE. Negative Homans noted. FROM of the ankle. Ambulates with an altered gait due to knee pain. Strength is 5/5 on the LE bilaterally. Neuro: Sensation is intact on the LE bilaterally. [facility] Medical History Adenomyoma of gallbladder Acne rosacea Family History Brother Prostate CA Father Prostate CA Mother Brain tumor Social History Housing: House Alcohol intake: never Patient Tobacco Use Status: Never used Tobacco e-Cigarette/Vaping Use: Never Used Second Hand Smoke Exposure: No service: No Current occupational status: retired Current occupation: [employer] - [address] Cognitive needs: No Hearing needs: No Vision needs: No Review of Systems Const All systems reviewed & are unremarkable except as noted in HPI and below Physical Exam Vital Signs: Last Vital Signs Temp 97.9 F 02/27/25 10:29 Pulse 66 02/27/25 10:29 BP 138/80 02/27/25 10:29 Pulse Ox 98 02/27/25 10:29 Oxygen Delivery Method Room Air 02/27/25 10:29 BMI result Body Mass Index 29.1 Results Reviewed Results Reviewed: will review the x-ray in the office Assessment & Plan Assessment & Plan (1) Right knee pain: Code(s): M25.561 - Pain in right knee Qualifiers: Chronicity: unspecified Qualified Code(s): M25.561 - Pain in right knee Plan Most likely strain vs bursitis vs arthritis plan - rest, ice, and elevation - wear knee brace for support as needed - will order an x-ray in the office - naproxen BID as needed for pain - will refer him to ortho - follow up with PCP Orders: Referrals Orthopedics Referral M25.561 - Pain in right knee Medications: New naproxen 500 mg PO Q12H PRN 20 tabs 0RF pain 7 days Coding Level of Care Code Est Pt Level 4 (23891) Diagnoses Right knee pain, unspecified chronicity M25.561 Chronicity: unspecified
--- OUTSIDE RECORDS SUMMARY | 2025-02-27 11:27 | XMS_ITS | Patient Health Record ---
Author Organization [facility] Daniella selvin [place] Address [address] [place] [address] Care Team Providers Care Hand Salter Name Role Phone Darius Blanco Primary Care Provider Unavailab Radha Llamas Unavailable [phone] Allergies Allergen (clinical drug ingredient) Drug/Non Drug Allergy documented on EMR Reaction Allergy Type Onset Date Status lisinopril Lisinopril Unknown Drug Allergy Activ e Reason For Referral No Information Medications Medication SIG (Take, Route, Fr equency, Duration) Notes Start Date End Date Status Medrol isaiah 4mg as directed orally a s directed; Duration: 6 days 06/07/2024 Active Atenolol 25 MG 1 tablet Orally Once a day; Duration: 30 days Active Allergy PRN Active Immunizations Vaccine Route Administration Date Status Comme nts COVID-19 Moderna Vaccine Unknown 04/15/2021 Administered 10/2020 2nd 11/2020 Social History Tobacco Use: [...] Risk Notes Problem Mononeuropathy of lower limb (359105811) Neuritis of left foot (G57.92) Active confirmed Problem 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 [address] [place] [address] [id number] Felix Erazo Self - patient is the insured Medical (General) History Medical History History ICD Code High blood pressure Chicken pox Measles Surgical History Surgery Date(Month/Year) tonsillectomy and adenoidectomy 1960s hernia 1960s
== END 2025-02-27 11:23 | disposition home or self-care (01) ==
PROVIDERS: PCP Physician Assistant; Visit Provider Physician Assistant Medical
DX: M25.561 Pain in right knee (principal)

== ENCOUNTER → 2025-02-27 11:18 | Outpatient (BNV) | payer OTHER, SELFPAY | PROVIDERS: PCP Physician Assistant; Visit Provider Radiology Diagnostic Radiology | DX: M25.561 Pain in right knee (principal) | CPT/HCPCS: 73564 ==

== ENCOUNTER 2025-04-11 11:55 | Outpatient (REF) | payer OTHER, SELFPAY ==
[2025-04-11 13:40] LABS: Hematocrit 47.5 % (42.0-52.0); Hemoglobin 15.6 g/dl (14.0-18.0); Mean Corpuscular HGB Conc 32.8 g/dl (31.0-36.0); Mean Corpuscular Hemoglobin 31.1 pg (27.0-33.0); Mean Corpuscular Volume 94.6 fL (80.0-98.0); NRBC Abs Auto 0.000 X10*3/uL (0.0-0.012); NRBC Pct Auto 0.0 /100WBC (0.0-0.2); Platelet Count 275 X10*3/uL (160-400); Red Blood Count 5.02 X10*6/uL (4.60-5.80); White Blood Count 10.1 X10*3/uL (4.8-10.8)
[2025-04-11 14:21] LABS: Microalbum/Creatinine Ratio Ur 4.0 ug/mg cr (<30)
[2025-04-11 14:54] LABS: Alanine Aminotransferase 20 U/L (0-40); Albumin Level 4.5 g/dL (3.5-5.0); Alkaline Phosphatase 82 U/L (39-117); Anion Gap 12 (12-20); Aspartate Amino Transferase 24 U/L (5-37); Blood Urea Nitrogen 16 mg/dL (9-16); Calcium 9.4 mg/dL (8.4-10.2); Carbon Dioxide 26 mmol/L (22-29); Chloride 108 mmol/L (96-108); Cholesterol 199 mg/dL (<200); Estimated Glomerular Filt Rate > 60; HDL Cholesterol 37 mg/dL (>40); Potassium 3.7 mmol/L (3.3-5.1); Sodium 142 mmol/L (135-145); Total Protein 6.9 g/dL (6.5-8.0); Triglycerides 114 mg/dL (<150)
--- OUTSIDE RECORDS SUMMARY | 2025-04-11 15:18 | XMS_ITS | Patient Health Record ---
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) Active confirmed Vital Signs Blood pressure diastolic 90 mm Hg 06/07/2024 Height 6ft in 06/07/2024 Blood pressure systolic 140 mm Hg 06/07/2024 Weight 210 lbs 06/07/2024 BMI 28.48 kg/m2 06/07/2024 Encounters Encounter Location Date Provider Diagnosis [facility] [place] [address] [place] [address] 06/07/2024 Radha Perica Pain in left foot [...] Insured Coverage Start Date Coverage End Date [facility] [address] [place] [address] [id number] Felix Erazo Self - patient is the insured Medical (General) History Medical History History ICD Code High blood pressure Chicken pox Measles Surgical History Surgery Date(Month/Year) tonsillectomy and adenoidectomy 1960s hernia 1960s
== END 2025-04-11 11:56 | disposition home or self-care (01) ==
LOC: HO.HMGCLDS 11:55
PROVIDERS: PCP Physician Assistant; Visit Provider Physician Assistant
DX: I10 Essential (primary) hypertension (principal); R73.09 Other abnormal glucose; E78.9 Disorder of lipoprotein metabolism, unspecified
CPT/HCPCS: 36415; 80053; 80061; 82043; 82570; 83036; 85027

== ENCOUNTER 2025-04-20 10:41 | Outpatient (AMB) | payer OTHER, SELFPAY ==
[2025-04-20 10:52] VITALS: BP 140/80; PULSE 57; TEMP 36.1; O2SAT 98; BMI 29.3
--- NOTE | 2025-04-20 10:52 | MHC.PC.OV ---
Vital Signs 04/20/25 10:52 Height 5 ft 11 in Weight 210 lb BMI 29.3 BP 140/80 H Blood Pressure Location Lt brachial Position Sitting Pulse 57 Pulse Source Pulse Oximeter Temp 96.9 F Temp Source Temporal Artery Scan Pulse Oximetry (%) 98 Oxygen Delivery Method Room Air Intake Visit Reasons: 6 month f/u [employer] Build[employer] Decorator Required: No Accompanied by: Self / Same As Patient Allergies lisinopril Adverse Reaction (Intermediate, Verified 04/20/25 11:13) Hypertension Medication List - Last Reconciled 04/20/25 by Darius Blanco PA-C amlodipine 10 mg PO DAILY 90 days atenolol 25 mg PO DAILY docusate sodium (Colace) 100 mg PO DAILY 15 days ibuprofen 800 mg PO Q8H PRN 10 days ivermectin 1% 1 appl topical DAILY PRN 14 days metronidazole 0.75% 1 appl topical DAILY PRN 15 days naproxen 500 mg PO Q12H PRN 7 days eujgqiczx-acqezpdu-odcnp-w.pet 0.25-1 % (Preparation H Maximum Strength) 1 appl FL BID 10 days triamcinolone acetonide 0.1% 1 appl topical DAILY 15 days Tobacco use date assessed: 10/04/24 Dental Screening Dental Screen Date: 10/04/24 Did you have a dental visit in the last 12 months?: No Did you have a dental problem in the last 6 months where you did not have access to dental care?: No Was dental information given to patient?: Patient has dentist HPI 6 month f/u HPI Details Patient is a 64 -year-old male here today for follow-up visit ? Patient has a past medical history hypertension, impaired glucose metabolism, borderline high cholesterol. concerns--> having right knee issue over the last few months. He feels that he injured it while gardening and took around step. Did get an x-ray that showed no arthritis though did have -- >Enthesopathy, quadriceps tendon. Has upcoming appointment Orthopedics and anticipates getting a cortisone injection to help. He reports ibuprofen 800 does help his pain. ? .. ? Hypertension: Blood pressure today in office acceptable. He is now on amlodipine 10 mg has better control of his blood pressure has not been regularly monitoring his blood pressure at home. .. Symptomatic hemorrhoid: The patient also has an upcoming appointment with Dr. Durham for a hemorrhoid issue, which he describes as feeling like a painful grape during flare-ups. He manages symptoms by soaking in a sitz bath and denies constipation or bleeding with bowel movements. He reports an increase in bowel movement frequency to 3-5 times per day since retiring. He had a similar thrombosed hemorrhoid problem 15 years ago that was lanced, and another episode where a surgeon advised increasing dietary fiber instead of surgical intervention ? . ? .. ? Borderline high cholesterol:? Patient's most recent cholesterol panel showing much elevated total cholesterol and LDL. He reports some dietary indiscretion. He will continue working on lifestyle and dietary modifications Impaired glucose metabolism:? Most recent blood sugar acceptable. does admit to eating sweets often.. He attributes his elevations in his blood sugar due to his diet.? He will try to work on reducing his sugar at night.? Most recent A1c of 5.2 Laboratory Tests 09/23/24 04/11/25 08:26 11:59 RBC 5.02 Cholesterol 210 H 199 LDL Cholesterol, C alc 146 H 140 H HDL Cholesterol 37 L [facility] Medical History Adenomyoma of gallbladder Acne rosacea Family History Brother Prostate CA Father Prostate CA Mother Brain tumor Social History Housing: House Alcohol intake: never Patient Tobacco Use Status: Never used Tobacco e-Cigarette/Vaping Use: Never Used Second Hand Smoke Exposure: No service: No Current occupational status: retired Current occupation: [employer] Cognitive needs: No Hearing needs: No Vision needs: No Questionnaire PHQ-9 Over the last 2 weeks, how often have you been bothered by any of the following problems? 1. Little interest or pleasure in doing things: not at all 2. Feeling down, depressed, or hopeless: not at all 3. Trouble falling or staying asleep, or sleeping too much: not at all 4. Feeling tired or having little energy: not at all 5. Poor appetite or overeating: not at all 6. Feeling bad about yourself - or that you are a failure or have let yourself or your family down: not at all 7. Trouble concentrating on things, such as reading the newspaper or watching television: not at all 8. Moving or speaking so slowly that other people could have noticed. Or the opposite - being so fidgety or restless that you have been moving around a lot more than usual: not at all 9. Thoughts that you would be better off or of hurting yourself in some way: not at all Total score: 0 Depression Screening Interpretation: Negative Depression Screening Done: Yes 14870 - PHQ-9 Billing: Yes Source: Developed by Drs. Lane Elias, Carmen Clark, Elliot Gilmore and colleagues, with an educational jigna from [employer]. Thrive Questionnaire Date Thrive assessed: 09/27/24 I am a: Patient What is your living situation today?: I have a steady place to live Within the past 12 months, did the food you bought not last and you didn't have the money to get more?: I choose not to answer this question Within the past 12 months, did you worry whether your food would run out before you got money to buy more?: Never true Do you have trouble paying for medicines?: I choose not to answer this question Do you have trouble getting transportation to medical appointments?: I choose not to answer this question Do you have trouble paying your heating and electricity bill?: I choose not to answer this question Do you have trouble taking care of your child, family member or friend?: I choose not to answer this question Do you have trouble with day-to-day activities such as bathing, preparing meals, shopping, managing finances, etc.?: No Are you currently unemployed and looking for a job?: I choose not to answer this question Are you interested in more education?: I choose not to answer this question Please select the resources that you would like help with: None Currently or been in a relationship where the following occur: I choose not to answer THRIVE Score: 0 AUDIT C Alcohol Use Questionnaire (AUDIT-C) 1. How often do you have a drink containing alcohol?: Never 3. How often do you have six or more drinks on one occasion?: Never Total Score: 0 SUSHIL-7 AMB Questionnaire SUSHIL-7 Date SUSHIL - 7 assessed: 10/04/24 Feeling nervous, anxious, or on edge: 1 = Several days Not being able to stop or control worryin = Several days Worrying too much about different things: 1 = Several days Trouble relaxin = More than half the days Being so restless that it is hard to sit still: 1 = Several days Becoming easily annoyed or irritable: 1 = Several days Feeling afraid as if something awful might happen: 1 = Several days Total SUSHIL-7 score (0-4 normal; 5-9 mild; 10-14 moderate; 15-21 severe): 8 Source: Developed by Drs. Lane Elias, Carmen Clark, Elliot Gilmore and colleagues, with an educational jigna from [employer]. SUSHIL-7 Assessment Billing SUSHIL-7 Assessment Tool: SUSHIL-7 Assessment 59302 Review of Systems Const Denies headache(s) Eyes Denies loss of vision ENT Denies vertigo, Denies dizziness, Denies headache(s) and Denies sore throat Card Denies chest pain, Denies leg edema and Denies lightheadedness Resp Denies cough, Denies hemoptysis and Denies wheezing GI Denies abdominal pain, Denies melena, Denies constipation, Denies diarrhea and Denies vomiting Denies dysuria, Denies urinary frequency and Denies urinary urgency Musc Denies arthralgias, Denies joint swelling, Denies numbness and Denies tingling Neuro Denies Abnormal speech present, Denies behavioral changes, Denies vertigo, Denies dizziness, Denies headache(s), Denies loss of vision, Denies memory loss, Denies numbness and Denies tingling Psych Denies anxiety, Denies behavioral changes, Denies depression, Denies memory loss and Denies panic attacks Iglesia/Lymph Denies easy bleeding and Denies easy bruising Aller/Immun Denies wheezing Physical exam (Primary Care) Vital Signs: Last Vital Signs Temp 96.9 F 04/20/25 10:52 Pulse 57 04/20/25 10:52 BP 140/80 H 04/20/25 10:52 Pulse Ox 98 04/20/25 10:52 Oxygen Delivery Method Room Air 04/20/25 10:52 BMI result Body Mass Index 29.3 Tobacco/Smoking Status: Tobacco use Status Tobacco use date assessed 10/04/24 04/20/25 10:54 Patient Tobacco Use Status Never used Tobacco 04/20/25 10:54 e-Cigarette/Vaping Use Never Used 04/20/25 10:54 PHQ-9: PHQ-9 Score PHQ-9: Total score 0 04/20/25 11:15 Depression Screening Interpretation: Negative Thrive Assessment: Date of Thrive Assessment Date Thrive assessed 09/27/24 04/20/25 10:54 Currently or been in a relationship where the following occur: I choose not to answer Const General: healthy appearing, no acute distress, alert and awake Nutritional Appearance: well nourished Orientation/consciousness: oriented to person, oriented to place and oriented to time HENMT Ears: TM's normal bilaterally General nose exam: Normal nasal mucous membranes and turbinates present Eyes Conjunctivae: conjunctivae normal Sclerae: sclerae normal Pupils: Equal, round and reactive pupils present Neck Neck: Yes no lymphadenopathy and Yes no JVD Thyroid: Thyroid normal Carotids: no bruits Resp Effort & Inspection: normal respiratory effort and not tachypneic Auscultation: no crackles, no rales, no rhonchi and no wheezes Cardio Rate: regular rate Rhythm: regular rhythm Heart sounds: no murmurs and normal S1 and S2 GI Palpation (GI): Soft to palpation, nontender, no hepatomegaly and no splenomegaly Auscultation: normal bowel sounds Skin General skin exam: no rashes or lesions noted and dry skin Neuro General: oriented to person, oriented to place and oriented to time Cranial nerves: Yes Equal, round and reactive pupils present Speech: No Abnormal speech present Gait exam (Neuro): Normal gait present Motor exam (neuro): no tremor noted Extrem Right upper extremity: full ROM Left upper extremity: full ROM Right lower extremity: full ROM; no edema Left lower extremity: full ROM; no edema Psych Mental Status: mental status grossly normal Speech and movement: Normal speech and movement present Affect: normal affect Attitude: cooperative Thought process: Normal thought process present Coding Level of Care Code Est Pt Level 4 (99757) Diagnoses Borderline high cholesterol E78.9 Essential hypertension I10 Hypertension type: essential hypertension Impaired glucose metabolism R73.09 Hemorrhoids with complication K64.8 Additional Codes SUSHIL-7 Assessment Billing - SUSHIL-7 Assessment Tool: SUSHIL-7 Assessment 63400 ([id number]) PHQ-9 - 54516 - PHQ-9 Billing: Yes ([id number]) Assessment & Plan Assessment & Plan (1) Borderline high cholesterol: Code(s): E78.9 - Disorder of lipoprotein metabolism, unspecified Category: Medical Plan: Patient's most recent lipid panel showing showing improved total cholesterol and LDL. He will continue on lifestyle and dietary modifications. Goal total cholesterol to be below 100 and goal LDL to be below 130 (2) HTN (hypertension): Code(s): I10 - Essential (primary) hypertension Category: Medical Qualifiers: Hypertension type: essential hypertension Qualified Code(s): I10 - Essential (primary) hypertension Plan: Patient's blood pressure acceptable today in office . Will continue his current dose of amlodipine Advised to continue monitoring blood pressure with goal blood pressure to be below 140/90 (3) Impaired glucose metabolism: Code(s): R73.09 - Other abnormal glucose Category: Medical Plan: Most recent fasting blood sugar has improved. A1c not in diabetic range. He will continue lifestyle and dietary modifications to control his fasting blood sugars (4) Hemorrhoids with complication: Code(s): K64.8 - Other hemorrhoids Category: Medical Plan: Regarding the hemorrhoids, the patient will proceed with his upcoming specialist appointment with Dr. Durham. The role of increased fiber for regulating bowel movements was discussed. Orders: Orders Lipid Panel Today E78.9 - Disorder of lipoprotein metabolism, unspecified Comprehensive [place]. Panel Fast Today R73.09 - Other abnormal glucose Complete Blood Count no Diff Today R73.09 - Other abnormal glucose Microalbumin, Random (w Creat) Today I10 - Essential (primary) hypertension Hemoglobin A1c Today R73.09 - Other abnormal glucose Prostate Specific Antigen Scr Today I10 - Essential (primary) hypertension, Z12.5 - Encounter for screening for malignant neoplasm of prostate Patient Instructions: Goal: Blood pressure to remain below 130/80 Barriers: Adherence to physical activity and healthy eating habits
--- OUTSIDE RECORDS SUMMARY | 2025-04-20 12:51 | XMS_ITS | Patient Health Record ---
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) Active confirmed Vital Signs Blood pressure diastolic 90 mm Hg 06/07/2024 Height 6ft in 06/07/2024 Blood pressure systolic 140 mm Hg 06/07/2024 Weight 210 lbs 06/07/2024 BMI 28.48 kg/m2 06/07/2024 Encounters Encounter Location Date Provider Diagnosis [facility] [place] [address] [place] [address] 06/07/2024 Radha Perica Pain in left foot [...] Insured Coverage Start Date Coverage End Date [facility] [address] [place] [address] [id number] Felix Erazo Self - patient is the insured Medical (General) History Medical History History ICD Code High blood pressure Chicken pox Measles Surgical History Surgery Date(Month/Year) tonsillectomy and adenoidectomy 1960s hernia 1960s
== END 2025-04-20 11:28 | disposition home or self-care (01) ==
LOC: HO.HMCH 10:41
PROVIDERS: PCP Physician Assistant; Visit Provider Physician Assistant
DX: E78.9 Disorder of lipoprotein metabolism, unspecified (principal); I10 Essential (primary) hypertension; R73.09 Other abnormal glucose; K64.8 Other hemorrhoids

== ENCOUNTER → 2025-04-20 10:41 | Outpatient (BNVA) | payer OTHER, SELFPAY | PROVIDERS: PCP Physician Assistant; Visit Provider Physician Assistant | DX: I10 Essential (primary) hypertension (principal); R73.09 Other abnormal glucose; K64.8 Other hemorrhoids | CPT/HCPCS: 96127 ==

== ENCOUNTER 2025-05-08 09:53 | Outpatient (AMB) | payer OTHER, SELFPAY ==
--- NOTE | 2025-05-08 09:55 | A.OFFVIS_ITS ---
Vital Signs 05/08/25 10:01 Height 5 ft 11 in Weight 214 lb 4.629 oz BMI 29.9 BP 154/89 H Blood Pressure Location Lt brachial Position Sitting Pulse 62 Intake Visit Reasons: hemorrhoids Intake Note: Patient presents for an assessment for hemorrhoids. Pt c/o; no complaints at this time. Outplacement Consultant Required: No Accompanied by: Self / Same As Patient Allergies lisinopril Adverse Reaction (Intermediate, Verified 05/08/25 10:02) Hypertension Medication List - Last Reconciled 05/08/25 by Meliton Durham MD amlodipine 10 mg PO DAILY 90 days atenolol 25 mg PO DAILY docusate sodium (Colace) 100 mg PO DAILY 15 days ibuprofen 800 mg PO Q8H PRN 10 days ivermectin 1% 1 appl topical DAILY PRN 14 days metronidazole 0.75% 1 appl topical DAILY PRN 15 days naproxen 500 mg PO Q12H PRN 7 days paovxgdpd-pcgwyiki-wmkns-w.pet 0.25-1 % (Preparation H Maximum Strength) [address] BID 10 days triamcinolone acetonide 0.1% 1 appl topical DAILY 15 days HPI HPI hemorrhoids: Details: 64-year-old male referred for hemorrhoid issues. He says that he has had hemorrhoids for many years which he says did not really bother him that much. However last January and February, he noted these hemorrhoids to be very swollen and uncomfortable. Denies any bleeding He says that the swelling has improved significantly although he says he still feels these hemorrhoids He denies any problems with constipation. He said he had Cologuard testing last year which was unremarkable He has known to have gallstones. He says that these have not bothering him for over 5 years. 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 Acne rosacea Family History Brother Prostate CA Father Prostate CA Mother Brain tumor Social History Housing: House Alcohol intake: never Patient Tobacco Use Status: Never used Tobacco e-Cigarette/Vaping Use: Never Used Second Hand Smoke Exposure: No service: No Current occupational status: retired Current occupation: [employer] Cognitive needs: No Hearing needs: No Vision needs: No Review of Systems Const Denies chills and Denies fever(s) Card Denies chest pain, Denies dyspnea and Denies dyspnea on exertion Resp Denies cough, Denies dyspnea and Denies dyspnea on exertion GI Denies hematochezia and Denies change in bowel habits Denies hematuria and Denies difficulty urinating Musc Denies back pain and Denies limited range of motion Neuro Denies focal weakness and Denies convulsions Psych Denies depression and Denies mood swings Physical Exam Const General: comfortable and no acute distress Orientation/consciousness: patient oriented x3 Neck Neck: Yes no lymphadenopathy Resp Auscultation: clear to auscultation bilaterally Cardio Rhythm: regular rhythm GI Other: Rectal exam shows a large external hemorrhoid at the left, mildly swollen Palpation (GI): Soft to palpation, nontender and no guarding Neuro General: patient oriented x3 Office Procedures Anoscopy He was in healing nehemiah-knife position. The anoscope was gently inserted. A full examination of the entire anal canal was done. He did have this large external internal hemorrhoidal column on the left side. This was not bleeding. He did not have any other lesions. There was no ulcer or fissure. There was no induration felt on digital exam. [id number] Assessment & Plan Assessment & Plan (1) Mixed internal and external hemorrhoid: Code(s): K64.8 - Other hemorrhoids; K64.4 - Residual hemorrhoidal skin tags Category: Medical Plan: He has this large internal external hemorrhoidal column on the left side. He does describe having some swelling last January and February. In view of the large size of the hemorrhoid with symptoms, I explained to him the option of hemorrhoidectomy. I discussed with the technique of this procedure. I reviewed the risks including but not limited to bleeding and infections and postop pain, as well as the benefits and alternatives He says that he would like to hold off on surgical intervention at this time I will see him in the office in about 1 month to see how is doing as this hemorrhoid seems to be edematous currently. Coding Level of Care Code New Pt Level 3 (79745) Diagnoses Mixed internal and external hemorrhoid K64.8; K64.4 CPT Codes Details - CPT: 09415-[id number] ([id number])
[2025-05-08 10:01] VITALS: BP 154/89; PULSE 62; BMI 29.9
== END 2025-05-08 10:13 | disposition home or self-care (01) ==
LOC: HO.HGS 09:54
PROVIDERS: PCP Physician Assistant; Visit Provider Surgery
DX: K64.8 Other hemorrhoids (principal); K64.4 Residual hemorrhoidal skin tags
CPT/HCPCS: 46600; 99203

== ENCOUNTER → 2025-05-08 09:53 | Outpatient (BNVA) | payer OTHER, SELFPAY | PROVIDERS: PCP Physician Assistant; Visit Provider Surgery | DX: K64.4 Residual hemorrhoidal skin tags (principal); K64.8 Other hemorrhoids | CPT/HCPCS: 46600 ==